=== PATIENT | male | born 1965 | race Two or more races ===

== ENCOUNTER 2018-01-26 09:19 | Observation (INO) | payer MEDICAID ==
[~2018-01-26] VITALS: Ht 175.3 cm; Wt 85.0 kg
[~2018-01-26 09:19] MED LIST: FERR-63 PO; FOLI-43 PO; FURO80TA3 PO; HYDR-4195 RC; MULT-1146 PO; NEPVIT PO; OMEP40CA34 PO; PROC; SEVE800T8 PO; SUCR500T PO
[2018-01-26] MEDS ORDERED: CLONIDINE 0.2MG TABLET PO ONE (09:30)
[2018-01-26 09:47] LABS: CHLORIDE 89 mEq/L (98-107)
[2018-01-26 09:50] LABS: INR 1.1; PARTIAL THROMBOPLASTIN TIME 25.2 sec (23.4-31.0); PROTHROMBIN TIME 11.1 sec (9.4-11.6)
[2018-01-26 10:02] LABS: BASOPHILS % 0.6 % (0.0-2.0); EOSINOPHILS % 3.2 % (0.0-5.0); HEMOGLOBIN. 10.9 g/dL (14.0-18.0); LYMPHOCYTES % 26.1 % (20.0-50.0); MEAN CORPUSCULAR HEMOGLOBIN 28.4 pg (28.0-32.0); MEAN CORPUSCULAR VOLUME 83.7 fL (80.0-94.0); MEAN PLATELET VOLUME 8.9 fl (7.4-10.4); MONOCYTES % 10.1 % (2.0-8.0); PLATELET 354 x1000/uL (130-400); RED BLOOD CELL COUNT 3.83 mill/uL (4.7-6.1); RED CELL DISTRIBUTION WIDTH 17.4 % (11.6-14.6)
[2018-01-26] MEDS ORDERED: FUROSEMIDE 40MG/4ML VIAL IVP SCH (10:20)
[2018-01-26 10:55] LABS: BG BASE EXCESS -3.4 mmol/L (-2.0-2.0); BG BILEVEL POS AIRWAY PRESSURE 15/5; BG CARBOXYHEMOGLOBIN 0.3 % (0.5-1.5); BG DEOXYHEMOGLOBIN 1.8 % (0.0-5.0); BG HCO3 ACT 21.9 mmol/L (22.0-26.0); BG METHEMOGLOBIN 0.2 % (0.0-1.5); BG OXYGEN SATURATION 98.2 % (92.0-98.5); BG OXYHEMOGLOBIN 97.7 % (94.0-97.0); BG PCO2 40.4 mmHg (35.0-45.0); BG PH 7.352 (7.350-7.450); BG SAMPLE SITE RIGHT RADIAL; BG TOTAL HEMOGLOBIN 10.3 g/dL (12.0-18.0); BG VENT MODE MASK - BIPAP; BG VENT RATE 16 set
[2018-01-26] MEDS ORDERED: LORAZEPAM 0.5MG TABLET PO PRN (11:15)
[2018-01-26] MEDS ORDERED: NA PHOS,M-B/NA PHOS,DI-BA ENEMA 118ML PR PRN (11:15)
[2018-01-26] MEDS ORDERED: HYDROCODONE/ACETAMINOPHEN 5/325MG TABLET PO PRN (11:15)
[2018-01-26] MEDS ORDERED: ACETAMINOPHEN 650MG/20.3ML UDC GT PRN (11:15)
[2018-01-26] MEDS ORDERED: ONDANSETRON HCL 4MG/2ML VIAL IV PRN (11:15)
[2018-01-26] MEDS ORDERED: MAGNESIUM/ALUMINUM HYDROXIDE/SIMETHICONE 30ML UDC PO PRN (11:15)
[2018-01-26] MEDS ORDERED: ENOXAPARIN 40MG/0.4ML SYR SUBCUT SCH (11:15)
[2018-01-26] MEDS ORDERED: DOCUSATE SODIUM 100MG CAPSULE PO PRN (11:15)
[2018-01-26] MEDS ORDERED: HYDROCODONE/ACETAMINOPHEN 10/325MG TABLET PO PRN (11:15)
[2018-01-26] MEDS ORDERED: ACETAMINOPHEN 650MG SUPP PR PRN (11:15)
[2018-01-26] MEDS ORDERED: ACETAMINOPHEN 325MG TABLET PO PRN (11:15)
[2018-01-26] MEDS ORDERED: GUAIFENESIN 200MG/10ML SUGAR FREE UDC PO PRN (11:15)
[2018-01-26 11:23] VITALS: BP 124/78
[2018-01-26] MEDS ORDERED: ENOXAPARIN 30MG/0.3ML SYR SUBCUT SCH (13:00)
== END 2018-01-26 12:35 | disposition left against medical advice (07) ==
LOC: EDBEDREQTM 09:40 → EDBEDREQ 09:40 → EDBEDREQSVC 09:40 → ER 10:13 → 3WST 10:14 → INTOOBSV 10:14 → ENRESERV 10:45 → 3WST 11:35
PROVIDERS: ADMIT Internal Medicine; ATTEND Internal Medicine
DX: E11.22 Type 2 diabetes mellitus with diabetic chronic kidney disease (principal); I13.2 Hypertensive heart and chronic kidney disease with heart failure and with stage 5 chronic kidney disease, or end stage renal disease; I50.9 Heart failure, unspecified; N18.6 End stage renal disease; E78.5 Hyperlipidemia, unspecified; E87.1 Hypo-osmolality and hyponatremia; J81.1 Chronic pulmonary edema; Z99.2 Dependence on renal dialysis
CPT/HCPCS: 36415; 36600; 71045; 80053; 82375; 82805; 83690; 83880; 84484; 85025; 85610; 85730; 93005; 94660; 96374; 99291; G0378; J1940; 99285

== ENCOUNTER 2018-03-18 06:17 | Observation (INO) | payer MEDICAID ==
[~2018-03-18] VITALS: Ht 177.8 cm; Wt 95.7 kg
[2018-03-18] MEDS: NITROGLYCERIN 0.4MG TABLET SL SL PRN ×2 (06:25→06:34)
[2018-03-18 07:13] LABS: BASOPHILS % 0.8 % (0.0-2.0); EOSINOPHILS % 6.7 % (0.0-5.0); HEMATOCRIT. 35.2 % (42.0-52.0); HEMOGLOBIN. 11.8 g/dL (14.0-18.0); LYMPHOCYTES % 37.5 % (20.0-50.0); MEAN CORPUSCULAR HEMOGLOBIN 28.3 pg (28.0-32.0); MEAN CORPUSCULAR VOLUME 84.7 fL (80.0-94.0); MEAN PLATELET VOLUME 8.4 fl (7.4-10.4); MONOCYTES % 13.4 % (2.0-8.0); NEUTROPHILS % 41.6 % (40.0-76.0); PLATELET 314 x1000/uL (130-400); RED BLOOD CELL COUNT 4.16 mill/uL (4.7-6.1); RED CELL DISTRIBUTION WIDTH 18.5 % (11.6-14.6)
[2018-03-18 07:15] LABS: CHLORIDE 91 mEq/L (98-107)
[2018-03-18 07:16] LABS: INR 1.1
[2018-03-18] MEDS ORDERED: LEVOFLOXACIN 750MG PREMIX 150 ML IV ONE (08:45)
[2018-03-18 10:00] VITALS: BP 126/84
[2018-03-18 12:00] VITALS: BP 133/87
[2018-03-18 14:08] VITALS: BP 125/81
[2018-03-18] MEDS ORDERED: DIPHENHYDRAMINE 50MG/ML VIAL IV PRN (14:15)
[2018-03-18] MEDS ORDERED: ONDANSETRON HCL 4MG/2ML VIAL IV PRN (14:15)
[2018-03-18] MEDS ORDERED: HYDROCODONE/ACETAMINOPHEN 5/325MG TABLET PO PRN (14:15)
[2018-03-18] MEDS ORDERED: ACETAMINOPHEN 650MG/20.3ML UDC GT PRN (14:15)
[2018-03-18] MEDS ORDERED: NA PHOS,M-B/NA PHOS,DI-BA ENEMA 118ML PR PRN (14:15)
[2018-03-18] MEDS ORDERED: ACETAMINOPHEN 325MG TABLET PO PRN (14:15)
[2018-03-18] MEDS ORDERED: LORAZEPAM 0.5MG TABLET PO PRN (14:15)
[2018-03-18] MEDS ORDERED: GUAIFENESIN 200MG/10ML SUGAR FREE UDC PO PRN (14:15)
[2018-03-18] MEDS ORDERED: IPRATROPIUM/ALBUTEROL 0.5-3(2.5)MG/3ML NEB INH PRN (14:15)
[2018-03-18] MEDS ORDERED: HYDROCODONE/ACETAMINOPHEN 10/325MG TABLET PO PRN (14:15)
[2018-03-18] MEDS ORDERED: MAGNESIUM/ALUMINUM HYDROXIDE/SIMETHICONE 30ML UDC PO PRN (14:15)
[2018-03-18] MEDS ORDERED: DOCUSATE SODIUM 100MG CAPSULE PO PRN (14:15)
[2018-03-18] MEDS ORDERED: ACETAMINOPHEN 650MG SUPP PR PRN (14:15)
== END 2018-03-18 14:05 | disposition left against medical advice (07) ==
LOC: ER 06:17 → EDBEDREQSVC 07:07 → EDBEDREQ 07:07 → INTOOBSV 07:51 → 5EST 07:51 → EDBEDREQ 07:55 → EDBEDREQSVC 07:55 → ENRESERV 08:09
PROVIDERS: ADMIT Internal Medicine; ATTEND Internal Medicine
DX: J96.01 Acute respiratory failure with hypoxia (principal); D64.9 Anemia, unspecified; E11.22 Type 2 diabetes mellitus with diabetic chronic kidney disease; I13.2 Hypertensive heart and chronic kidney disease with heart failure and with stage 5 chronic kidney disease, or end stage renal disease; I50.9 Heart failure, unspecified; N18.6 End stage renal disease; E87.1 Hypo-osmolality and hyponatremia; Z99.2 Dependence on renal dialysis; Z91.19 Patient's noncompliance with other medical treatment and regimen
CPT/HCPCS: 36415; 71045; 80053; 83880; 84484; 85025; 85610; 87040; 93005; 94660; 96365; 99291; G0378; J1956

== ENCOUNTER 2018-05-22 05:03 | Emergency (ER) | payer MEDICAID ==
[~2018-05-22] VITALS: Ht 175.3 cm; Wt 81.0 kg
[2018-05-22] MEDS ORDERED: ASPIRIN 81MG TABLET PO ONE (05:15)
[2018-05-22] MEDS ORDERED: NITROGLYCERIN OINT 1GM/INCH UDPKT TD ONE (05:15)
[2018-05-22 05:29] LABS: BASOPHILS % 0.9 % (0.0-2.0); EOSINOPHILS % 4.9 % (0.0-5.0); LYMPHOCYTES % 42.4 % (20.0-50.0); MEAN CORPUSCULAR HEMOGLOBIN 28.8 pg (28.0-32.0); MEAN CORPUSCULAR VOLUME 84.4 fL (80.0-94.0); MEAN PLATELET VOLUME 8.8 fl (7.4-10.4); MONOCYTES % 7.8 % (2.0-8.0); PLATELET 310 x1000/uL (130-400); RED BLOOD CELL COUNT 4.15 mill/uL (4.7-6.1); RED CELL DISTRIBUTION WIDTH 18.3 % (11.6-14.6)
[2018-05-22 05:37] LABS: CHLORIDE 93 mEq/L (98-107)
[2018-05-22 05:38] LABS: BG BASE EXCESS -5.9 mmol/L (-2.0-2.0); BG BILEVEL POS AIRWAY PRESSURE 15/5; BG CARBOXYHEMOGLOBIN 1.1 % (0.5-1.5); BG DEOXYHEMOGLOBIN 1.2 % (0.0-5.0); BG FRACTION INSPIRED OXYGEN 60; BG HCO3 ACT 20.2 mmol/L (22.0-26.0); BG METHEMOGLOBIN 0.3 % (0.0-1.5); BG OXYGEN SATURATION 98.8 % (92.0-98.5); BG OXYHEMOGLOBIN 97.4 % (94.0-97.0); BG PCO2 41.9 mmHg (35.0-45.0); BG PH 7.301 (7.350-7.450); BG PO2 152.6 mmHg (75.0-100.0); BG SAMPLE SITE RIGHT RADIAL; BG TOTAL HEMOGLOBIN 12.4 g/dL (12.0-18.0); BG VENT MODE MASK - BIPAP; BG VENT RATE 20 set
[2018-05-22 05:40] LABS: PARTIAL THROMBOPLASTIN TIME 26.2 sec (23.4-31.0); PROTHROMBIN TIME 10.7 sec (9.4-11.6)
[2018-05-22 05:42] LABS: ETHANOL BLOOD < 10 mg/dL
[2018-05-22 08:08] VITALS: BP 152/77
== END 2018-05-22 08:29 | disposition left against medical advice (07) ==
LOC: EDBEDREQTM 06:37 → EDBEDREQSVC 06:37 → EDBEDREQ 06:37 → ER 07:33 → CANBEDREQ 08:33
DX: J96.90 Respiratory failure, unspecified, unspecified whether with hypoxia or hypercapnia (principal); I13.2 Hypertensive heart and chronic kidney disease with heart failure and with stage 5 chronic kidney disease, or end stage renal disease; E11.22 Type 2 diabetes mellitus with diabetic chronic kidney disease; N18.6 End stage renal disease; I50.9 Heart failure, unspecified; E87.70 Fluid overload, unspecified; Z99.2 Dependence on renal dialysis
CPT/HCPCS: 36415; 36600; 71045; 80053; 82375; 82805; 83880; 84484; 85025; 85610; 85730; 93005; 99291; G0482

== ENCOUNTER 2018-08-28 03:58 | Emergency (ER) | payer MEDICAID ==
[2018-08-28] MEDS ORDERED: NITROGLYCERIN OINT 1GM/INCH UDPKT TD ONE (04:15)
[2018-08-28 04:51] LABS: CHLORIDE 98 mEq/L (98-107)
[2018-08-28 05:14] LABS: BASOPHILS % 0.9 % (0.0-2.0); EOSINOPHILS % 3.8 % (0.0-5.0); HEMATOCRIT. 32.1 % (42.0-52.0); HEMOGLOBIN. 10.9 g/dL (14.0-18.0); MEAN CORPUSCULAR HEMOGLOBIN 28.9 pg (28.0-32.0); MEAN CORPUSCULAR VOLUME 85.1 fL (80.0-94.0); MEAN PLATELET VOLUME 8.2 fl (7.4-10.4); MONOCYTES % 7.9 % (2.0-8.0); NEUTROPHILS % 67.4 % (40.0-76.0); PLATELET 290 x1000/uL (130-400); RED BLOOD CELL COUNT 3.77 mill/uL (4.7-6.1); RED CELL DISTRIBUTION WIDTH 18.7 % (11.6-14.6)
[2018-08-28 07:30] VITALS: BP 162/103
[2018-08-28] MEDS ORDERED: DOCUSATE SODIUM 100MG CAPSULE PO PRN (10:00)
[2018-08-28] MEDS ORDERED: GUAIFENESIN 200MG/10ML SUGAR FREE UDC PO PRN (10:00)
[2018-08-28] MEDS ORDERED: ONDANSETRON HCL 4MG/2ML INJ IV PRN (10:00)
[2018-08-28] MEDS ORDERED: HYDROCODONE/ACETAMINOPHEN 5/325MG TABLET PO PRN (10:00)
[2018-08-28] MEDS ORDERED: MAGNESIUM/ALUMINUM HYDROXIDE/SIMETHICONE 30ML UDC PO PRN (10:00)
[2018-08-28] MEDS ORDERED: CLONIDINE 0.1MG TABLET PO PRN (10:00)
[2018-08-28] MEDS ORDERED: IPRATROPIUM/ALBUTEROL 0.5-3(2.5)MG/3ML NEB INH PRN (10:00)
[2018-08-29] MEDS ORDERED: ASPIRIN 81MG EC TABLET PO SCH (09:00)
[2018-08-29] MEDS ORDERED: PANTOPRAZOLE SODIUM 40 MG/VIAL IV SCH (09:00)
== END 2018-08-28 08:33 | disposition left against medical advice (07) ==
LOC: ER 03:58 → EDBEDREQTM 05:53 → EDBEDREQ 05:53 → ENRESERV 07:13 → CANRESERV 07:13 → ER 08:33 → CANBEDREQ 08:36
DX: E87.70 Fluid overload, unspecified (principal); N17.9 Acute kidney failure, unspecified; R06.03 Acute respiratory distress; I50.9 Heart failure, unspecified; K21.9 Gastro-esophageal reflux disease without esophagitis; I12.0 Hypertensive chronic kidney disease with stage 5 chronic kidney disease or end stage renal disease; E11.22 Type 2 diabetes mellitus with diabetic chronic kidney disease; N18.6 End stage renal disease; Z99.2 Dependence on renal dialysis
CPT/HCPCS: 36415; 71045; 82962; 83880; 84484; 93005; 99285

== ENCOUNTER 2018-09-28 04:39 | Inpatient (IN) | payer MEDICAID ==
[~2018-09-28] VITALS: Ht 175.3 cm; Wt 78.6 kg
[2018-09-28] MEDS ORDERED: ONDANSETRON HCL 4MG/2ML INJ IV STA (04:51)
[2018-09-28] MEDS ORDERED: NITROGLYCERIN OINT 1GM/INCH UDPKT TD ONE (05:00)
[2018-09-28] MEDS ORDERED: LABETALOL 5MG/ML SYR 20 MG/4 ML SYRINGE IV ONE (05:15)
[2018-09-28 05:30] LABS: BASOPHILS % 0.6 % (0.0-2.0); EOSINOPHILS % 3.5 % (0.0-5.0); HEMATOCRIT. 29.4 % (42.0-52.0); HEMOGLOBIN. 9.8 g/dL (14.0-18.0); LYMPHOCYTES % 21.6 % (20.0-50.0); MEAN CORPUSCULAR HEMOGLOBIN 27.9 pg (28.0-32.0); MEAN CORPUSCULAR VOLUME 83.4 fL (80.0-94.0); MONOCYTES % 9.1 % (2.0-8.0); NEUTROPHILS % 65.2 % (40.0-76.0); PLATELET 401 x1000/uL (130-400); RED BLOOD CELL COUNT 3.53 mill/uL (4.7-6.1); RED CELL DISTRIBUTION WIDTH 17.5 % (11.6-14.6)
[2018-09-28 05:42] LABS: CHLORIDE 97 mEq/L (98-107)
[2018-09-28] MEDS ORDERED: CLONIDINE 0.1MG TABLET PO PRN (09:30)
[2018-09-28] MEDS ORDERED: ONDANSETRON HCL 4MG/2ML INJ IV PRN (09:30)
[2018-09-28] MEDS ORDERED: DEXTROSE 50% WATER 50ML SYRINGE IV PRN (09:30)
[2018-09-28] MEDS ORDERED: ACETAMINOPHEN 325MG TABLET PO PRN (09:30)
[2018-09-28 10:30] VITALS: BP 142/77
[2018-09-28 11:30] VITALS: BP 142/77
[2018-09-28] MEDS ORDERED: LOSARTAN POTASSIUM 25 MG TABLET PO SCH (12:00)
[2018-09-28] MEDS ORDERED: BLOOD SUGAR DIAGNOSTIC STRIP TEST SCH (12:10)
[2018-09-28] MEDS ORDERED: INSULIN LISPRO 100 UNITS/ML SUBCUT SCH (12:40)
[2018-09-28] MEDS ORDERED: POTASSIUM CHLORIDE INJ 40 MEQ in DEXT 5% WATER 250 ML IV NR (13:00)
[2018-09-28] MEDS ORDERED: GUAIFENESIN 600MG ER TABLET PO PRN (13:15)
[2018-09-28] MEDS ORDERED: AMLODIPINE 5MG TABLET PO SCH (21:00)
[2018-09-28] MEDS ORDERED: POTASSIUM CHLORIDE 20MEQ TABLET SR PO SCH (21:00)
== END 2018-09-28 14:00 | disposition left against medical advice (07) | DRG 133 ==
LOC: ER 04:39 → EDBEDREQ 06:01 → EDBEDREQTM 06:01 → CANRESERV 07:10 → ENRESERV 07:10 → CANRESERV 08:04 → ENRESERV 08:18 → 8WST 09:27 → EDBEDREQ 09:28 → EDBEDREQTM 09:28
PROVIDERS: ADMIT Internal Medicine; ATTEND Internal Medicine
DX: J96.01 Acute respiratory failure with hypoxia (principal); E43 Unspecified severe protein-calorie malnutrition; I13.2 Hypertensive heart and chronic kidney disease with heart failure and with stage 5 chronic kidney disease, or end stage renal disease; J84.9 Interstitial pulmonary disease, unspecified; E11.22 Type 2 diabetes mellitus with diabetic chronic kidney disease; E87.8 Other disorders of electrolyte and fluid balance, not elsewhere classified; I16.0 Hypertensive urgency; D63.8 Anemia in other chronic diseases classified elsewhere; E11.65 Type 2 diabetes mellitus with hyperglycemia; E87.1 Hypo-osmolality and hyponatremia; I50.22 Chronic systolic (congestive) heart failure; E87.6 Hypokalemia; K29.70 Gastritis, unspecified, without bleeding; Z53.21 Procedure and treatment not carried out due to patient leaving prior to being seen by health care provider; N18.6 End stage renal disease; Z82.49 Family history of ischemic heart disease and other diseases of the circulatory system; Z83.3 Family history of diabetes mellitus; Z91.19 Patient's noncompliance with other medical treatment and regimen; Z99.2 Dependence on renal dialysis; Z79.899 Other long term (current) drug therapy
CPT/HCPCS: 36415; 71045; 82962; 84484; 93005; 96374; 99285; J2405; J3480; J3490; J7060

== ENCOUNTER 2018-12-14 21:19 | Inpatient (IN) | payer MEDICAID ==
[~2018-12-14] VITALS: Ht 172.7 cm; Wt 80.3 kg
[~2018-12-14 21:19] MED LIST changes: -FERR-63 PO; -FOLI-43 PO; -FURO80TA3 PO; -HYDR-4195 RC; -MULT-1146 PO; -NEPVIT PO; -PROC; -SEVE800T8 PO
[2018-12-14] MEDS ORDERED: NITROGLYCERIN 0.4MG TABLET SL SL ONE (21:30)
[2018-12-14 22:06] LABS: BASOPHILS % 0.6 % (0.0-2.0); EOSINOPHILS % 2.8 % (0.0-5.0); HEMATOCRIT. 27.9 % (42.0-52.0); HEMOGLOBIN. 8.9 g/dL (14.0-18.0); LYMPHOCYTES % 13.3 % (20.0-50.0); MEAN CORPUSCULAR HEMOGLOBIN 26.8 pg (28.0-32.0); MEAN CORPUSCULAR VOLUME 83.7 fL (80.0-94.0); MEAN PLATELET VOLUME 7.5 fl (7.4-10.4); MONOCYTES % 9.5 % (2.0-8.0); NEUTROPHILS % 73.8 % (40.0-76.0); PLATELET 347 x1000/uL (130-400); RED BLOOD CELL COUNT 3.33 mill/uL (4.7-6.1); RED CELL DISTRIBUTION WIDTH 20.2 % (11.6-14.6)
[2018-12-14 22:08] LABS: CHLORIDE 102 mEq/L (98-107)
[2018-12-15] MEDS ORDERED: CLONIDINE 0.1MG TABLET PO PRN
[2018-12-15] MEDS ORDERED: ONDANSETRON HCL 4MG/2ML INJ IV PRN
[2018-12-15] MEDS ORDERED: ACETAMINOPHEN 325MG TABLET PO PRN
[2018-12-15] MEDS ORDERED: DOCUSATE SODIUM 100MG CAPSULE PO PRN
[2018-12-15] MEDS ORDERED: IPRATROPIUM/ALBUTEROL 0.5-3(2.5)MG/3ML NEB INH PRN
[2018-12-15] MEDS ORDERED: HYDROCODONE/ACETAMINOPHEN 5/325MG TABLET PO PRN
[2018-12-15 06:45] LABS: BASOPHILS % 0.5 % (0.0-2.0); EOSINOPHILS % 3.7 % (0.0-5.0); HEMOGLOBIN. 8.7 g/dL (14.0-18.0); MEAN CORPUSCULAR HEMOGLOBIN 27.4 pg (28.0-32.0); MEAN PLATELET VOLUME 7.8 fl (7.4-10.4); MONOCYTES % 8.3 % (2.0-8.0); NEUTROPHILS % 76.5 % (40.0-76.0); PLATELET 335 x1000/uL (130-400); RED BLOOD CELL COUNT 3.16 mill/uL (4.7-6.1); RED CELL DISTRIBUTION WIDTH 20.3 % (11.6-14.6)
[2018-12-15 07:00] LABS: CREATINE KINASE MB FRACTION 7.3 ng/mL (0.5-3.6)
[2018-12-15 12:31] LABS: TOTAL IRON BINDING CAPACITY 160 ug/dL (250-450)
[2018-12-15 12:40] VITALS: BP 149/85
[2018-12-15 12:55] LABS: FOLIC ACID (FOLATE) SERUM 18.6 ng/mL (>5.38)
[2018-12-15 16:55] VITALS: BP 141/82
[2018-12-15 20:00] VITALS: BP 135/76
[2018-12-15] MEDS: ATORVASTATIN CALCIUM 20MG TABLET PO SCH ×2 (21:00→22:24)
[2018-12-15] MEDS: EPOETIN ALFA 10000UNITS/ML VIAL SUBCUT SCH ×2 (21:00→22:24)
[2018-12-15 22:04] LABS: CREATINE KINASE MB FRACTION 8.5 ng/mL (0.5-3.6)
[2018-12-16] VITALS: BP 127/70
[2018-12-16 02:00] VITALS: BP 127/70
[2018-12-16 04:00] VITALS: BP 126/68
[2018-12-16] MEDS ORDERED: OMEPRAZOLE 20MG CAPSULE EXTENDED RELEASE PO SCH (07:10)
[2018-12-16 08:00] VITALS: BP 136/77
[2018-12-16 10:11] LABS: EOSINOPHILS % 4.1 % (0.0-5.0); HEMATOCRIT. 25.5 % (42.0-52.0); HEMOGLOBIN. 8.3 g/dL (14.0-18.0); MEAN CORPUSCULAR HEMOGLOBIN 27.1 pg (28.0-32.0); MEAN CORPUSCULAR VOLUME 83.4 fL (80.0-94.0); MEAN PLATELET VOLUME 7.6 fl (7.4-10.4); MONOCYTES % 9.9 % (2.0-8.0); PLATELET 326 x1000/uL (130-400); RED BLOOD CELL COUNT 3.06 mill/uL (4.7-6.1); RED CELL DISTRIBUTION WIDTH 20.5 % (11.6-14.6)
[2018-12-16 10:55] LABS: PHOSPHORUS 5.3 mg/dL (2.5-4.9)
[2018-12-16] MEDS ORDERED: DEXTROSE 5% IV SCH (14:15)
[2018-12-16] MEDS ORDERED: CEFTAZIDIME PENTAHYDRATE IV SCH (14:15)
[2018-12-16] MEDS ORDERED: WATER IV SCH (14:15)
[2018-12-16] MEDS ORDERED: VANCOMYCIN 1500MG in DEXTROSE 5% WATER 250ML IV SCH (16:00)
[2018-12-16] MEDS ORDERED: CEFTAZIDIME PENTAHYDRATE 1 G in DEXTROSE 5% WATER 50 ML IV SCH (17:00)
== END 2018-12-16 15:50 | disposition left against medical advice (07) | DRG 133 ==
LOC: ER 21:19 → 8WST 23:25 → EDBEDREQ 23:26 → EDBEDREQSVC 23:26 → EDBEDREQ 23:44 → EDBEDREQSVC 23:44 → EDBEDREQTM 23:44 → ENRESERV 12-15 11:49
PROVIDERS: ADMIT Internal Medicine; ATTEND Internal Medicine
PROC: 5A09357 Assistance with Respiratory Ventilation, Less than 24 Consecutive Hours, Continuous Positive Airway Pressure (ICD-10-PCS; principal; 2018-12-14)
PROC: 5A1D70Z Performance of Urinary Filtration, Intermittent, Less than 6 Hours Per Day (ICD-10-PCS; 2018-12-15)
DX: J96.00 Acute respiratory failure, unspecified whether with hypoxia or hypercapnia (principal); I13.2 Hypertensive heart and chronic kidney disease with heart failure and with stage 5 chronic kidney disease, or end stage renal disease; J18.9 Pneumonia, unspecified organism; E11.21 Type 2 diabetes mellitus with diabetic nephropathy; E11.22 Type 2 diabetes mellitus with diabetic chronic kidney disease; D72.0 Genetic anomalies of leukocytes; I50.22 Chronic systolic (congestive) heart failure; N18.6 End stage renal disease; E44.1 Mild protein-calorie malnutrition; I16.0 Hypertensive urgency; I45.81 Long QT syndrome; D63.1 Anemia in chronic kidney disease; K29.70 Gastritis, unspecified, without bleeding; Z53.21 Procedure and treatment not carried out due to patient leaving prior to being seen by health care provider; I45.10 Unspecified right bundle-branch block; E78.5 Hyperlipidemia, unspecified; Z99.2 Dependence on renal dialysis; Z79.4 Long term (current) use of insulin; Z82.49 Family history of ischemic heart disease and other diseases of the circulatory system; Z91.19 Patient's noncompliance with other medical treatment and regimen; Z79.899 Other long term (current) drug therapy
CPT/HCPCS: 36415; 71045; 74018; 80048; 80061; 82550; 82553; 82607; 82728; 82746; 83540; 83550; 83735; 83880; 84100; 84443; 84484; 93005; 93306; 93970; 94660; 99285; J0713; J0885; J3370; J7060

== ENCOUNTER 2018-12-17 19:13 | Inpatient (IN) | payer MEDICAID ==
[~2018-12-17] VITALS: Ht 175.3 cm; Wt 72.7 kg
[2018-12-17] MEDS ORDERED: ALBUTEROL (0.083%) 2.5MG/3ML NEB HHN STA (19:37)
[2018-12-17] MEDS ORDERED: IPRATROPIUM BROMIDE (0.02%) 0.5MG/2.5ML NEB HHN STA (19:37)
[2018-12-17] MEDS ORDERED: METHYLPREDNISOLONE SOD SUCC 125 MG/2 ML VIAL IV STA (19:37)
[2018-12-17 20:28] LABS: HEMATOCRIT. 26.1 % (42.0-52.0); HEMOGLOBIN. 8.6 g/dL (14.0-18.0); LYMPHOCYTES % 14.8 % (20.0-50.0); MEAN CORPUSCULAR HEMOGLOBIN 27.3 pg (28.0-32.0); MEAN CORPUSCULAR VOLUME 82.5 fL (80.0-94.0); MEAN PLATELET VOLUME 7.5 fl (7.4-10.4); MONOCYTES % 6.9 % (2.0-8.0); NEUTROPHILS % 74.3 % (40.0-76.0); PLATELET 329 x1000/uL (130-400); RED BLOOD CELL COUNT 3.17 mill/uL (4.7-6.1); RED CELL DISTRIBUTION WIDTH 19.8 % (11.6-14.6)
[2018-12-17 20:31] LABS: CHLORIDE 106 mEq/L (98-107)
[2018-12-18] VITALS (25 sets, daily range): BP systolic 115–213; BP diastolic 48–126
[2018-12-18] MEDS ORDERED: DIPHENHYDRAMINE 50MG CAPSULE PO PRN (02:15)
[2018-12-18] MEDS: OMEPRAZOLE 20MG CAPSULE EXTENDED RELEASE PO SCH (07:10)
[2018-12-18] MEDS: SEVELAMER CARBONATE 800 MG TABLET PO SCH ×3 (07:40→12:25)
[2018-12-18] MEDS: FOLIC ACID/VITAMIN B COMP W-C TABLET PO SCH (09:10)
[2018-12-18] MEDS: ALBUTEROL (0.083%) 2.5MG/3ML NEB HHN PRN (12:11)
[2018-12-18 17:20] LABS: BG BASE EXCESS -9.6 mmol/L (-2.0-2.0); BG BILEVEL POS AIRWAY PRESSURE 15/5; BG CARBOXYHEMOGLOBIN 0.3 % (0.5-1.5); BG DEOXYHEMOGLOBIN 0.4 % (0.0-5.0); BG HCO3 ACT 16.2 mmol/L (22.0-26.0); BG METHEMOGLOBIN 0.5 % (0.0-1.5); BG OXYGEN SATURATION 99.6 % (92.0-98.5); BG OXYHEMOGLOBIN 98.8 % (94.0-97.0); BG PCO2 34.8 mmHg (35.0-45.0); BG PH 7.286 (7.350-7.450); BG PO2 495.5 mmHg (75.0-100.0); BG SAMPLE SITE RIGHT RADIAL; BG VENT MODE MASK - BIPAP; BG VENT RATE 14 set
[2018-12-18 17:44] LABS: PHOSPHORUS 6.1 mg/dL (2.5-4.9)
[2018-12-18] MEDS ORDERED: DEXTROSE 50% WATER 50ML SYRINGE IV PRN (18:15)
[2018-12-18] MEDS: BLOOD SUGAR DIAGNOSTIC STRIP TEST SCH (20:49)
[2018-12-18] MEDS: INSULIN LISPRO 100 UNITS/ML SUBCUT SCH (20:50)
[2018-12-19] VITALS: BP 138/81
[2018-12-19 00:15] VITALS: BP 160/73
[2018-12-19 00:30] VITALS: BP 153/78
[2018-12-19 00:45] VITALS: BP 158/88
[2018-12-19 01:00] VITALS: BP 140/74
[2018-12-19 02:00] VITALS: BP 152/82
[2018-12-19] MEDS: INSULIN LISPRO 100 UNITS/ML SUBCUT SCH ×3 (06:17→21:58)
[2018-12-19] MEDS: BLOOD SUGAR DIAGNOSTIC STRIP TEST SCH ×4 (06:17→21:58)
[2018-12-19] MEDS: OMEPRAZOLE 20MG CAPSULE EXTENDED RELEASE PO SCH (06:17)
[2018-12-19] MEDS: SEVELAMER CARBONATE 800 MG TABLET PO SCH ×2 (07:00→12:00)
[2018-12-19] MEDS: FOLIC ACID/VITAMIN B COMP W-C TABLET PO SCH (08:39)
[2018-12-19] MEDS: LACTULOSE 20G/30ML UDC PO PRN (11:13)
[2018-12-19] MEDS ORDERED: HEPARIN SODIUM 1,000 UNIT/1ML VIAL IV SCH (14:45)
[2018-12-19] MEDS ORDERED: PERIT DIALYSIS IV NR (19:00)
[2018-12-19] MEDS ORDERED: VANCOMYCIN IV NR (19:00)
[2018-12-19] MEDS ORDERED: DEXT IV NR (19:00)
[2018-12-20 05:45] LABS: BASOPHILS % 0.9 % (0.0-2.0); EOSINOPHILS % 3.4 % (0.0-5.0); HEMOGLOBIN. 7.4 g/dL (14.0-18.0); LYMPHOCYTES % 16.1 % (20.0-50.0); MEAN CORPUSCULAR HEMOGLOBIN 27.3 pg (28.0-32.0); MEAN PLATELET VOLUME 8.1 fl (7.4-10.4); MONOCYTES % 12.7 % (2.0-8.0); NEUTROPHILS % 66.9 % (40.0-76.0); PLATELET 249 x1000/uL (130-400); RED BLOOD CELL COUNT 2.72 mill/uL (4.7-6.1); RED CELL DISTRIBUTION WIDTH 19.4 % (11.6-14.6)
[2018-12-20 06:00] VITALS: BP 142/67
[2018-12-20] MEDS: BLOOD SUGAR DIAGNOSTIC STRIP TEST SCH ×4 (06:14→21:00)
[2018-12-20] MEDS: OMEPRAZOLE 20MG CAPSULE EXTENDED RELEASE PO SCH ×2 (06:20→06:25)
[2018-12-20] MEDS: SEVELAMER CARBONATE 800 MG TABLET PO SCH ×4 (06:20→17:22)
[2018-12-20] MEDS: INSULIN LISPRO 100 UNITS/ML SUBCUT SCH ×5 (06:21→21:00)
[2018-12-20] MEDS: LACTULOSE 20G/30ML UDC PO PRN ×2 (06:31→17:20)
[2018-12-20] MEDS: FOLIC ACID/VITAMIN B COMP W-C TABLET PO SCH (08:22)
[2018-12-20 10:40] VITALS: BP 119/71
[2018-12-20 11:58] LABS: HEPATITIS B SURFACE ANTIGEN NEGATIVE
[2018-12-20 12:00] VITALS: BP 127/67
[2018-12-20 12:27] LABS: HEPATITIS A AB IGM NEGATIVE (NEGATIVE)
[2018-12-20 16:00] VITALS: BP 116/61
[2018-12-20] MEDS ORDERED: LACTULOSE 20G/30ML UDC PO PRN (17:14)
[2018-12-20] MEDS: VANCOMYCIN IV SCH (17:23)
[2018-12-20] MEDS: CEFTAZIDIME PENTAHYDRATE IV SCH (17:23)
[2018-12-20] MEDS: [UNRECOGNIZED DRUG - OTHER] IV SCH (17:23)
[2018-12-20] MEDS: EPOETIN ALFA 10000UNITS/ML VIAL SUBCUT SCH (21:00)
[2018-12-21] VITALS (9 sets, daily range): BP systolic 97–156; BP diastolic 53–87
[2018-12-21] MEDS: BLOOD SUGAR DIAGNOSTIC STRIP TEST SCH ×4 (06:56→21:37)
[2018-12-21 07:29] LABS: BASOPHILS % 0.8 % (0.0-2.0); EOSINOPHILS % 3.1 % (0.0-5.0); LYMPHOCYTES % 13.1 % (20.0-50.0); MEAN CORPUSCULAR VOLUME 81.5 fL (80.0-94.0); MEAN PLATELET VOLUME 8.2 fl (7.4-10.4); MONOCYTES % 11.4 % (2.0-8.0); NEUTROPHILS % 71.6 % (40.0-76.0); PLATELET 233 x1000/uL (130-400); RED BLOOD CELL COUNT 2.54 mill/uL (4.7-6.1); RED CELL DISTRIBUTION WIDTH 19.2 % (11.6-14.6)
[2018-12-21] MEDS: SEVELAMER CARBONATE 800 MG TABLET PO SCH ×3 (08:10→17:28)
[2018-12-21 08:24] LABS: HEMOGLOBIN. 6.8 g/dL (14.0-18.0)
[2018-12-21 08:25] LABS: HEMATOCRIT. 20.7 % (42.0-52.0)
[2018-12-21] MEDS: FOLIC ACID/VITAMIN B COMP W-C TABLET PO SCH (08:39)
[2018-12-21] MEDS: FAMOTIDINE 20MG/2ML VIAL IV SCH (08:39)
[2018-12-21] MEDS: INSULIN LISPRO 100 UNITS/ML SUBCUT SCH ×4 (08:40→21:00)
[2018-12-21] MEDS: VANCOMYCIN IV SCH (16:59)
[2018-12-21] MEDS: [UNRECOGNIZED DRUG - OTHER] IV SCH (16:59)
[2018-12-21] MEDS: CEFTAZIDIME PENTAHYDRATE IV SCH (16:59)
[2018-12-21] MEDS: DOCUSATE SODIUM 250MG CAPSULE PO PRN (18:19)
[2018-12-21] MEDS: LACTULOSE 20G/30ML UDC PO PRN (18:19)
[2018-12-22] VITALS: BP 135/72
[2018-12-22 04:00] VITALS: BP 124/68
[2018-12-22] MEDS: BLOOD SUGAR DIAGNOSTIC STRIP TEST SCH ×4 (06:57→21:41)
[2018-12-22] MEDS: INSULIN LISPRO 100 UNITS/ML SUBCUT SCH ×4 (06:57→21:00)
[2018-12-22 07:18] LABS: BASOPHILS % 0.7 % (0.0-2.0); EOSINOPHILS % 3.3 % (0.0-5.0); HEMOGLOBIN. 8.3 g/dL (14.0-18.0); LYMPHOCYTES % 13.1 % (20.0-50.0); MEAN CORPUSCULAR HEMOGLOBIN 28.3 pg (28.0-32.0); MEAN CORPUSCULAR VOLUME 82.2 fL (80.0-94.0); MEAN PLATELET VOLUME 8.3 fl (7.4-10.4); MONOCYTES % 10.2 % (2.0-8.0); NEUTROPHILS % 72.7 % (40.0-76.0); PLATELET 237 x1000/uL (130-400); RED BLOOD CELL COUNT 2.92 mill/uL (4.7-6.1); RED CELL DISTRIBUTION WIDTH 19.2 % (11.6-14.6)
[2018-12-22] MEDS: FAMOTIDINE 20MG/2ML VIAL IV SCH (09:25)
[2018-12-22] MEDS: SEVELAMER CARBONATE 800 MG TABLET PO SCH ×3 (09:25→18:32)
[2018-12-22] MEDS: FOLIC ACID/VITAMIN B COMP W-C TABLET PO SCH (09:25)
[2018-12-22 12:00] VITALS: BP 132/67
[2018-12-22 16:00] VITALS: BP 136/70
[2018-12-22] MEDS: LACTULOSE 20G/30ML UDC PO PRN (18:48)
[2018-12-22 20:00] VITALS: BP 137/80
[2018-12-22] MEDS: ALBUTEROL (0.083%) 2.5MG/3ML NEB HHN PRN (20:50)
[2018-12-23] VITALS (8 sets, daily range): BP systolic 100–186; BP diastolic 41–94
[2018-12-23] MEDS: EPOETIN ALFA 10000UNITS/ML VIAL SUBCUT SCH (00:32)
[2018-12-23] MEDS: ALBUTEROL (0.083%) 2.5MG/3ML NEB HHN PRN (04:15)
[2018-12-23] MEDS: SEVELAMER CARBONATE 800 MG TABLET PO SCH ×3 (08:10→18:30)
[2018-12-23] MEDS: INSULIN LISPRO 100 UNITS/ML SUBCUT SCH ×4 (08:10→21:00)
[2018-12-23] MEDS: BLOOD SUGAR DIAGNOSTIC STRIP TEST SCH ×4 (08:24→21:00)
[2018-12-23] MEDS ORDERED: MIDAZOLAM HCL 5 MG/5 ML VIAL IV PRN (08:45)
[2018-12-23] MEDS ORDERED: FENTANYL CITRATE/PF 50MCG/ML 2ML VIAL IV PRN (08:46)
[2018-12-23] MEDS ORDERED: FENTANYL CITRATE/PF 50MCG/ML 2ML VIAL ONE (08:48)
[2018-12-23] MEDS ORDERED: SIMETHICONE 40 MG/0.6 ML 30ML ONE (08:48)
[2018-12-23] MEDS ORDERED: MIDAZOLAM HCL 5 MG/5 ML VIAL ONE (08:48)
[2018-12-23] MEDS ORDERED: DIPHENHYDRAMINE 50MG/ML VIAL ONE (08:49)
[2018-12-23] MEDS: FOLIC ACID/VITAMIN B COMP W-C TABLET PO SCH (09:00)
[2018-12-23] MEDS: FAMOTIDINE 20MG/2ML VIAL IV SCH (09:00)
[2018-12-23] MEDS: PANTOPRAZOLE SODIUM 40 MG/VIAL IV SCH (11:18)
[2018-12-23] MEDS: SUCRALFATE 1 G/10 ML UDC PO SCH ×3 (12:40→21:32)
[2018-12-23 12:43] LABS: BASOPHILS % 0.7 % (0.0-2.0); EOSINOPHILS % 2.5 % (0.0-5.0); HEMATOCRIT. 25.5 % (42.0-52.0); HEMOGLOBIN. 8.7 g/dL (14.0-18.0); INR 1.1; LYMPHOCYTES % 11.3 % (20.0-50.0); MEAN CORPUSCULAR HEMOGLOBIN 28.1 pg (28.0-32.0); MEAN CORPUSCULAR VOLUME 81.9 fL (80.0-94.0); MEAN PLATELET VOLUME 8.2 fl (7.4-10.4); MONOCYTES % 8.4 % (2.0-8.0); NEUTROPHILS % 77.1 % (40.0-76.0); PARTIAL THROMBOPLASTIN TIME 29.9 sec (23.4-31.0); PLATELET 240 x1000/uL (130-400); PROTHROMBIN TIME 10.9 sec (9.1-11.1); RED BLOOD CELL COUNT 3.11 mill/uL (4.7-6.1); RED CELL DISTRIBUTION WIDTH 19.1 % (11.6-14.6)
[2018-12-23 12:59] LABS: FERRITIN 1421 ng/mL (22-322)
[2018-12-23] MEDS ORDERED: SODIUM CHLORIDE 0.9% 10ML VIAL ONE (13:36)
[2018-12-23 13:51] LABS: FOLIC ACID (FOLATE) SERUM >20 ng/mL ng/mL (>5.38)
[2018-12-23 14:03] LABS: VITAMIN B12 SERUM 764 pg/mL (211-911)
[2018-12-23] MEDS ORDERED: DIATR MEGLU/DIATRIZOATE SOLN 120ML ONE (14:05)
[2018-12-23] MEDS ORDERED: BARIUM SULFATE 176 GM SUSP.RECON ONE (14:28)
[2018-12-24] VITALS: BP 124/59
[2018-12-24 04:00] VITALS: BP 121/69
[2018-12-24] MEDS: BLOOD SUGAR DIAGNOSTIC STRIP TEST SCH ×4 (07:40→22:51)
[2018-12-24 08:00] VITALS: BP 153/60
[2018-12-24] MEDS: SUCRALFATE 1 G/10 ML UDC PO SCH ×4 (09:07→22:51)
[2018-12-24] MEDS: FOLIC ACID/VITAMIN B COMP W-C TABLET PO SCH (09:07)
[2018-12-24] MEDS: SEVELAMER CARBONATE 800 MG TABLET PO SCH ×3 (09:07→18:58)
[2018-12-24] MEDS: PANTOPRAZOLE SODIUM 40 MG/VIAL IV SCH (09:07)
[2018-12-24] MEDS: INSULIN LISPRO 100 UNITS/ML SUBCUT SCH ×4 (09:07→23:09)
[2018-12-24 12:00] VITALS: BP 119/42
[2018-12-24 13:54] LABS: BASOPHILS % 0.6 % (0.0-2.0); EOSINOPHILS % 2.5 % (0.0-5.0); HEMATOCRIT. 27.6 % (42.0-52.0); HEMOGLOBIN. 9.1 g/dL (14.0-18.0); LYMPHOCYTES % 9.7 % (20.0-50.0); MEAN CORPUSCULAR HEMOGLOBIN 27.8 pg (28.0-32.0); MEAN PLATELET VOLUME 7.9 fl (7.4-10.4); NEUTROPHILS % 78.2 % (40.0-76.0); PLATELET 278 x1000/uL (130-400); RED BLOOD CELL COUNT 3.28 mill/uL (4.7-6.1); RED CELL DISTRIBUTION WIDTH 19.3 % (11.6-14.6)
[2018-12-24] MEDS: ALBUTEROL (0.083%) 2.5MG/3ML NEB HHN PRN (17:35)
[2018-12-24 20:00] VITALS: BP 132/62
[2018-12-24] MEDS: EPOETIN ALFA 10000UNITS/ML VIAL SUBCUT SCH (22:51)
[2018-12-25] VITALS: BP 121/56
[2018-12-25] MEDS: LACTULOSE 20G/30ML UDC PO PRN ×2 (00:55→19:04)
[2018-12-25 04:00] VITALS: BP 135/79
[2018-12-25] MEDS: ALBUTEROL (0.083%) 2.5MG/3ML NEB HHN PRN (04:15)
[2018-12-25] MEDS: BLOOD SUGAR DIAGNOSTIC STRIP TEST SCH ×4 (07:03→21:00)
[2018-12-25 07:15] LABS: BASOPHILS % 0.6 % (0.0-2.0); EOSINOPHILS % 2.2 % (0.0-5.0); HEMATOCRIT. 22.7 % (42.0-52.0); HEMOGLOBIN. 7.7 g/dL (14.0-18.0); LYMPHOCYTES % 15.2 % (20.0-50.0); MEAN CORPUSCULAR HEMOGLOBIN 28.1 pg (28.0-32.0); MEAN CORPUSCULAR VOLUME 83.4 fL (80.0-94.0); MEAN PLATELET VOLUME 8.3 fl (7.4-10.4); MONOCYTES % 9.1 % (2.0-8.0); NEUTROPHILS % 72.9 % (40.0-76.0); PLATELET 233 x1000/uL (130-400); RED BLOOD CELL COUNT 2.73 mill/uL (4.7-6.1); RED CELL DISTRIBUTION WIDTH 19.7 % (11.6-14.6)
[2018-12-25 08:00] VITALS: BP 141/78
[2018-12-25] MEDS: INSULIN LISPRO 100 UNITS/ML SUBCUT SCH ×4 (08:10→21:00)
[2018-12-25] MEDS: SUCRALFATE 1 G/10 ML UDC PO SCH ×4 (08:58→21:55)
[2018-12-25] MEDS: SEVELAMER CARBONATE 800 MG TABLET PO SCH ×3 (08:58→18:10)
[2018-12-25] MEDS: FOLIC ACID/VITAMIN B COMP W-C TABLET PO SCH (08:58)
[2018-12-25] MEDS: PANTOPRAZOLE SODIUM 40 MG/VIAL IV SCH (09:00)
[2018-12-25 12:00] VITALS: BP 146/81
[2018-12-25 16:00] VITALS: BP 136/85
[2018-12-25 20:00] VITALS: BP 137/81
[2018-12-26] VITALS: BP 140/81
[2018-12-26 04:00] VITALS: BP 145/76
[2018-12-26 07:24] LABS: BASOPHILS % 0.6 % (0.0-2.0); EOSINOPHILS % 3.5 % (0.0-5.0); HEMATOCRIT. 23.7 % (42.0-52.0); HEMOGLOBIN. 8.1 g/dL (14.0-18.0); LYMPHOCYTES % 12.4 % (20.0-50.0); MEAN CORPUSCULAR HEMOGLOBIN 28.3 pg (28.0-32.0); MEAN CORPUSCULAR VOLUME 82.9 fL (80.0-94.0); MONOCYTES % 8.4 % (2.0-8.0); NEUTROPHILS % 75.1 % (40.0-76.0); RED BLOOD CELL COUNT 2.86 mill/uL (4.7-6.1); RED CELL DISTRIBUTION WIDTH 19.9 % (11.6-14.6)
[2018-12-26] MEDS: BLOOD SUGAR DIAGNOSTIC STRIP TEST SCH ×4 (07:40→21:00)
[2018-12-26 08:00] VITALS: BP 146/80
[2018-12-26] MEDS: INSULIN LISPRO 100 UNITS/ML SUBCUT SCH ×4 (08:10→21:00)
[2018-12-26] MEDS: PANTOPRAZOLE 40MG DR TABLET PO SCH ×2 (09:15→22:56)
[2018-12-26] MEDS: FOLIC ACID/VITAMIN B COMP W-C TABLET PO SCH (09:15)
[2018-12-26] MEDS: SUCRALFATE 1 G/10 ML UDC PO SCH ×4 (09:15→22:56)
[2018-12-26] MEDS: SEVELAMER CARBONATE 800 MG TABLET PO SCH ×3 (09:15→18:10)
[2018-12-26 10:14] LABS: PLATELET 223 x1000/uL (130-400)
[2018-12-26 16:00] VITALS: BP 136/79
[2018-12-26 20:00] VITALS: BP 122/69
[2018-12-26] MEDS: LACTULOSE 20G/30ML UDC PO PRN (22:56)
[2018-12-27] VITALS: BP_SYST 122; BP_SYST 134; BP_DIAS 65; BP_DIAS 69
[2018-12-27 04:00] VITALS: BP 125/72
[2018-12-27 06:43] LABS: EOSINOPHILS % 4.3 % (0.0-5.0); HEMATOCRIT. 23.2 % (42.0-52.0); HEMOGLOBIN. 7.9 g/dL (14.0-18.0); LYMPHOCYTES % 15.5 % (20.0-50.0); MEAN CORPUSCULAR HEMOGLOBIN 27.8 pg (28.0-32.0); MEAN CORPUSCULAR VOLUME 81.7 fL (80.0-94.0); MEAN PLATELET VOLUME 8.3 fl (7.4-10.4); MONOCYTES % 9.2 % (2.0-8.0); PLATELET 252 x1000/uL (130-400); RED BLOOD CELL COUNT 2.84 mill/uL (4.7-6.1); RED CELL DISTRIBUTION WIDTH 19.7 % (11.6-14.6)
[2018-12-27] MEDS: BLOOD SUGAR DIAGNOSTIC STRIP TEST SCH ×4 (07:40→21:44)
[2018-12-27 08:00] VITALS: BP 133/73
[2018-12-27] MEDS: INSULIN LISPRO 100 UNITS/ML SUBCUT SCH ×4 (08:10→21:00)
[2018-12-27] MEDS: NEOMY SULF/BACITRAC ZN/POLY OINT 28GM TOP SCH (09:00)
[2018-12-27] MEDS: FOLIC ACID/VITAMIN B COMP W-C TABLET PO SCH ×2 (09:08→09:13)
[2018-12-27] MEDS: SEVELAMER CARBONATE 800 MG TABLET PO SCH ×3 (09:08→18:10)
[2018-12-27] MEDS: SUCRALFATE 1 G/10 ML UDC PO SCH ×4 (09:08→21:00)
[2018-12-27 16:00] VITALS: BP 142/75
[2018-12-27 20:00] VITALS: BP 127/67
[2018-12-28] VITALS (7 sets, daily range): BP systolic 119–154; BP diastolic 55–93
[2018-12-28] MEDS: EPOETIN ALFA 10000UNITS/ML VIAL SUBCUT SCH (05:23)
[2018-12-28] MEDS: SUCRALFATE 1 G/10 ML UDC PO SCH ×4 (05:40→21:37)
[2018-12-28] MEDS: BLOOD SUGAR DIAGNOSTIC STRIP TEST SCH ×4 (05:40→21:00)
[2018-12-28] MEDS: PANTOPRAZOLE 40MG DR TABLET PO SCH (05:40)
[2018-12-28] MEDS: SEVELAMER CARBONATE 800 MG TABLET PO SCH ×3 (08:10→18:10)
[2018-12-28] MEDS: INSULIN LISPRO 100 UNITS/ML SUBCUT SCH ×4 (08:10→21:37)
[2018-12-28] MEDS: NEOMY SULF/BACITRAC ZN/POLY OINT 28GM TOP SCH (09:00)
[2018-12-28] MEDS: DOCUSATE SODIUM 250MG CAPSULE PO PRN (12:47)
[2018-12-28] MEDS: LACTULOSE 20G/30ML UDC PO PRN (19:10)
[2018-12-29] VITALS: BP 120/70
[2018-12-29 04:00] VITALS: BP 130/80
[2018-12-29] MEDS: BLOOD SUGAR DIAGNOSTIC STRIP TEST SCH ×4 (05:32→21:35)
[2018-12-29] MEDS: INSULIN LISPRO 100 UNITS/ML SUBCUT SCH ×4 (05:32→21:00)
[2018-12-29] MEDS: ALBUTEROL (0.083%) 2.5MG/3ML NEB HHN PRN (05:51)
[2018-12-29 07:17] LABS: BASOPHILS % 0.8 % (0.0-2.0); EOSINOPHILS % 5.2 % (0.0-5.0); HEMATOCRIT. 23.9 % (42.0-52.0); HEMOGLOBIN. 8.2 g/dL (14.0-18.0); LYMPHOCYTES % 13.8 % (20.0-50.0); MEAN CORPUSCULAR VOLUME 81.3 fL (80.0-94.0); MEAN PLATELET VOLUME 8.6 fl (7.4-10.4); MONOCYTES % 10.3 % (2.0-8.0); NEUTROPHILS % 69.9 % (40.0-76.0); PLATELET 280 x1000/uL (130-400); RED BLOOD CELL COUNT 2.94 mill/uL (4.7-6.1); RED CELL DISTRIBUTION WIDTH 19.3 % (11.6-14.6)
[2018-12-29] MEDS: SUCRALFATE 1 G/10 ML UDC PO SCH ×4 (07:40→20:50)
[2018-12-29] MEDS: PANTOPRAZOLE 40MG DR TABLET PO SCH (07:40)
[2018-12-29 08:00] VITALS: BP 144/75
[2018-12-29] MEDS: SEVELAMER CARBONATE 800 MG TABLET PO SCH ×3 (08:10→17:42)
[2018-12-29] MEDS: FOLIC ACID/VITAMIN B COMP W-C TABLET PO SCH (09:00)
[2018-12-29] MEDS: NEOMY SULF/BACITRAC ZN/POLY OINT 28GM TOP SCH (09:00)
[2018-12-29 12:00] VITALS: BP_SYST 127; BP_SYST 128; BP_DIAS 71; BP_DIAS 76
[2018-12-29 16:30] VITALS: BP 131/72
[2018-12-29 20:00] VITALS: BP 112/57
[2018-12-29] MEDS: EPOETIN ALFA 10000UNITS/ML VIAL SUBCUT SCH (23:48)
[2018-12-30 04:00] VITALS: BP 135/79
[2018-12-30] MEDS: BLOOD SUGAR DIAGNOSTIC STRIP TEST SCH ×2 (05:28→12:40)
[2018-12-30 08:00] VITALS: BP 131/70
[2018-12-30] MEDS: INSULIN LISPRO 100 UNITS/ML SUBCUT SCH ×2 (08:10→12:56)
[2018-12-30] MEDS: SUCRALFATE 1 G/10 ML UDC PO SCH ×2 (08:59→12:40)
[2018-12-30] MEDS: NEOMY SULF/BACITRAC ZN/POLY OINT 28GM TOP SCH (09:00)
[2018-12-30] MEDS: SEVELAMER CARBONATE 800 MG TABLET PO SCH ×2 (09:00→12:56)
[2018-12-30] MEDS: FOLIC ACID/VITAMIN B COMP W-C TABLET PO SCH (09:00)
[2018-12-30] MEDS: PANTOPRAZOLE 40MG DR TABLET PO SCH (09:00)
== END 2018-12-30 15:04 | disposition left against medical advice (07) | DRG 466 ==
LOC: ER 19:13 → 8WST 22:20 → EDBEDREQTM 22:24 → EDBEDREQ 22:24 → ENRESERV 12-18 00:03 → MICUSO 12-18 16:55 → 7WST 12-20 11:11
PROVIDERS: ADMIT Internal Medicine; ATTEND Internal Medicine
PROC: 5A09357 Assistance with Respiratory Ventilation, Less than 24 Consecutive Hours, Continuous Positive Airway Pressure (ICD-10-PCS; 2018-12-18)
PROC: 5A1D70Z Performance of Urinary Filtration, Intermittent, Less than 6 Hours Per Day (ICD-10-PCS; 2018-12-18)
PROC: 5A1D70Z Performance of Urinary Filtration, Intermittent, Less than 6 Hours Per Day (ICD-10-PCS; 2018-12-19)
PROC: 30233N1 Transfusion of Nonautologous Red Blood Cells into Peripheral Vein, Percutaneous Approach (ICD-10-PCS; 2018-12-21)
PROC: 5A1D70Z Performance of Urinary Filtration, Intermittent, Less than 6 Hours Per Day (ICD-10-PCS; 2018-12-21)
PROC: 0DB68ZX Excision of Stomach, Via Natural or Artificial Opening Endoscopic, Diagnostic (ICD-10-PCS; principal; 2018-12-23)
PROC: 5A1D70Z Performance of Urinary Filtration, Intermittent, Less than 6 Hours Per Day (ICD-10-PCS; 2018-12-23)
PROC: 5A1D70Z Performance of Urinary Filtration, Intermittent, Less than 6 Hours Per Day (ICD-10-PCS; 2018-12-25)
PROC: 0JBR0ZZ Excision of Left Foot Subcutaneous Tissue and Fascia, Open Approach (ICD-10-PCS; 2018-12-27)
PROC: 5A1D70Z Performance of Urinary Filtration, Intermittent, Less than 6 Hours Per Day (ICD-10-PCS; 2018-12-27)
PROC: 0JBR0ZZ Excision of Left Foot Subcutaneous Tissue and Fascia, Open Approach (ICD-10-PCS; 2018-12-27)
PROC: 5A1D70Z Performance of Urinary Filtration, Intermittent, Less than 6 Hours Per Day (ICD-10-PCS; 2018-12-29)
PROC: 5A1D70Z Performance of Urinary Filtration, Intermittent, Less than 6 Hours Per Day (ICD-10-PCS; 2018-12-30)
DX: T85.71XA Infection and inflammatory reaction due to peritoneal dialysis catheter, initial encounter (principal); J96.00 Acute respiratory failure, unspecified whether with hypoxia or hypercapnia; I13.2 Hypertensive heart and chronic kidney disease with heart failure and with stage 5 chronic kidney disease, or end stage renal disease; K65.9 Peritonitis, unspecified; J84.9 Interstitial pulmonary disease, unspecified; E44.0 Moderate protein-calorie malnutrition; E11.22 Type 2 diabetes mellitus with diabetic chronic kidney disease; E11.42 Type 2 diabetes mellitus with diabetic polyneuropathy; E83.39 Other disorders of phosphorus metabolism; I08.1 Rheumatic disorders of both mitral and tricuspid valves; I50.43 Acute on chronic combined systolic (congestive) and diastolic (congestive) heart failure; I27.20 Pulmonary hypertension, unspecified; E11.65 Type 2 diabetes mellitus with hyperglycemia; N18.6 End stage renal disease; I42.9 Cardiomyopathy, unspecified; I16.0 Hypertensive urgency; D63.1 Anemia in chronic kidney disease; R13.10 Dysphagia, unspecified; K29.80 Duodenitis without bleeding; Z60.2 Problems related to living alone; Y83.8 Other surgical procedures as the cause of abnormal reaction of the patient, or of later complication, without mention of misadventure at the time of the procedure; M20.42 Other hammer toe(s) (acquired), left foot; M20.41 Other hammer toe(s) (acquired), right foot; F41.9 Anxiety disorder, unspecified; K29.60 Other gastritis without bleeding; L97.529 Non-pressure chronic ulcer of other part of left foot with unspecified severity; D50.9 Iron deficiency anemia, unspecified; Z53.21 Procedure and treatment not carried out due to patient leaving prior to being seen by health care provider; E11.621 Type 2 diabetes mellitus with foot ulcer; M21.622 Bunionette of left foot; M21.621 Bunionette of right foot; Z79.4 Long term (current) use of insulin; Z82.49 Family history of ischemic heart disease and other diseases of the circulatory system; Z87.891 Personal history of nicotine dependence; Z99.2 Dependence on renal dialysis; Z91.15 Patient's noncompliance with renal dialysis; Z91.19 Patient's noncompliance with other medical treatment and regimen; Z79.899 Other long term (current) drug therapy; Z68.23 Body mass index [BMI] 23.0-23.9, adult
CPT/HCPCS: 36415; 36600; 71045; 74220; 80048; 80202; 82270; 82375; 82607; 82668; 82728; 82746; 82805; 82962; 83540; 83550; 83735; 83880; 84100; 84484; 86705; 86706; 86709; 86803; 86850; 86900; 86920; 87340; 88305; 88313; 93005; 93971; 94618; 94640; 94660; 99285; A6261; C9113; J0713; J0885; J1200; J1644; J1815; J2250; J3010; J3370; J3490; J7040; J7050; J7611; P9016; Q0163; Q9963

== ENCOUNTER 2019-01-10 23:33 | Emergency (ER) | payer MEDICAID ==
[~2019-01-10] VITALS: Ht 177.8 cm; Wt 75.0 kg
[2019-01-11 04:48] LABS: EOSINOPHILS % 4.6 % (0.0-5.0); HEMATOCRIT. 30.7 % (42.0-52.0); MEAN CORPUSCULAR HEMOGLOBIN 27.9 pg (28.0-32.0); MEAN CORPUSCULAR VOLUME 85.5 fL (80.0-94.0); MEAN PLATELET VOLUME 9.6 fl (7.4-10.4); MONOCYTES % 7.5 % (2.0-8.0); NEUTROPHILS % 71.9 % (40.0-76.0); PLATELET 328 x1000/uL (130-400); RED BLOOD CELL COUNT 3.59 mill/uL (4.7-6.1); RED CELL DISTRIBUTION WIDTH 20.8 % (11.6-14.6)
[2019-01-11 04:53] LABS: CHLORIDE 103 mEq/L (98-107)
[2019-01-11] MEDS ORDERED: HYDROCODONE/ACETAMINOPHEN 5/325MG TABLET PO PRN (11:00)
[2019-01-11] MEDS ORDERED: ACETAMINOPHEN 325MG TABLET PO PRN (11:00)
[2019-01-11] MEDS ORDERED: DOCUSATE SODIUM 100MG CAPSULE PO PRN (11:00)
[2019-01-11] MEDS ORDERED: MAGNESIUM/ALUMINUM HYDROXIDE/SIMETHICONE 30ML UDC PO PRN (11:00)
[2019-01-11] MEDS ORDERED: DIPHENHYDRAMINE 50MG/ML VIAL IV PRN (11:00)
[2019-01-11] MEDS ORDERED: CLONIDINE 0.1MG TABLET PO PRN (11:00)
[2019-01-11] MEDS ORDERED: ONDANSETRON HCL 4MG/2ML INJ IV PRN (11:00)
[2019-01-11] MEDS ORDERED: GUAIFENESIN 200MG/10ML SUGAR FREE UDC PO PRN (11:00)
[2019-01-11] MEDS ORDERED: AMLODIPINE 10MG TABLET PO SCH (11:00)
[2019-01-11 11:25] VITALS: BP 142/98
== END 2019-01-11 13:03 | disposition left against medical advice (07) ==
LOC: ER 23:33 → EDBEDREQTM 01-11 05:48 → EDBEDREQ 01-11 05:48 → CANBEDREQ 01-11 12:58 → ER 01-11 13:03
DX: E87.70 Fluid overload, unspecified (principal); N18.6 End stage renal disease; Z99.2 Dependence on renal dialysis; Z98.890 Other specified postprocedural states
CPT/HCPCS: 36415; 71045; 93005; 99284

== ENCOUNTER 2019-01-12 00:39 | Inpatient (IN) | payer MEDICAID ==
[~2019-01-12] VITALS: Ht 175.3 cm; Wt 68.0 kg
[2019-01-12] MEDS ORDERED: ONDANSETRON HCL 4MG/2ML INJ IV STA (00:54)
[2019-01-12] MEDS ORDERED: LABETALOL 5MG/ML SYR 20 MG/4 ML SYRINGE IV ONE (01:00)
[2019-01-12 01:10] LABS: BASOPHILS % 0.9 % (0.0-2.0); EOSINOPHILS % 4.2 % (0.0-5.0); HEMATOCRIT. 24.1 % (42.0-52.0); MEAN CORPUSCULAR HEMOGLOBIN 28.4 pg (28.0-32.0); MEAN CORPUSCULAR VOLUME 85.4 fL (80.0-94.0); MEAN PLATELET VOLUME 9.3 fl (7.4-10.4); MONOCYTES % 7.1 % (2.0-8.0); NEUTROPHILS % 65.8 % (40.0-76.0); PLATELET 451 x1000/uL (130-400); RED BLOOD CELL COUNT 2.82 mill/uL (4.7-6.1); RED CELL DISTRIBUTION WIDTH 20.3 % (11.6-14.6)
[2019-01-12] MEDS ORDERED: ALBUTEROL (0.083%) 2.5MG/3ML NEB HHN STA (01:26)
[2019-01-12 01:29] LABS: CHLORIDE 101 mEq/L (98-107)
[2019-01-12] MEDS ORDERED: GUAIFENESIN 200MG/10ML SUGAR FREE UDC PO PRN (07:15)
[2019-01-12] MEDS ORDERED: MORPHINE SULFATE 4 MG/ML CPJ (NOT FOR IM USE) IV PRN (07:15)
[2019-01-12] MEDS ORDERED: IPRATROPIUM/ALBUTEROL 0.5-3(2.5)MG/3ML NEB INH PRN (07:15)
[2019-01-12] MEDS ORDERED: DOCUSATE SODIUM 100MG CAPSULE PO PRN (07:15)
[2019-01-12] MEDS ORDERED: ONDANSETRON HCL 4MG/2ML INJ IV PRN (07:15)
[2019-01-12] MEDS ORDERED: CLONIDINE 0.1MG TABLET PO PRN (07:15)
[2019-01-12] MEDS ORDERED: DIPHENHYDRAMINE 50MG/ML VIAL IV PRN (07:15)
[2019-01-12] MEDS ORDERED: MAGNESIUM/ALUMINUM HYDROXIDE/SIMETHICONE 30ML UDC PO PRN (07:15)
[2019-01-12] MEDS ORDERED: ACETAMINOPHEN 325MG TABLET PO PRN (07:15)
[2019-01-12] MEDS ORDERED: NA PHOS,M-B/NA PHOS,DI-BA ENEMA 118ML PR PRN (07:15)
[2019-01-12] MEDS ORDERED: HYDROCODONE/ACETAMINOPHEN 5/325MG TABLET PO PRN (07:15)
[2019-01-12] MEDS ORDERED: LORAZEPAM 2MG/ML CPJ IV PRN (07:15)
[2019-01-12] MEDS ORDERED: FUROSEMIDE 100MG/10ML VIAL IVP NR (13:30)
[2019-01-12 14:00] VITALS: BP 132/73
[2019-01-12] MEDS ORDERED: AMLODIPINE 5MG TABLET PO SCH (14:00)
[2019-01-12 16:00] VITALS: BP 141/86
[2019-01-12 18:00] VITALS: BP 177/90
[2019-01-12] MEDS ORDERED: IPRATROPIUM/ALBUTEROL 0.5-3(2.5)MG/3ML NEB HHN SCH (18:00)
[2019-01-12 20:00] VITALS: BP 104/57
== END 2019-01-12 23:45 | disposition left against medical advice (07) | DRG 425 ==
LOC: ER 00:48 → 5EST 00:49 → EDBEDREQ 02:35 → EDBEDREQSVC 02:35 → EDBEDREQTM 02:35 → ENRESERV 12:30
PROVIDERS: ADMIT Internal Medicine; ATTEND Internal Medicine
PROC: 5A09357 Assistance with Respiratory Ventilation, Less than 24 Consecutive Hours, Continuous Positive Airway Pressure (ICD-10-PCS; principal; 2019-01-12)
PROC: 5A1D70Z Performance of Urinary Filtration, Intermittent, Less than 6 Hours Per Day (ICD-10-PCS; 2019-01-12)
DX: E87.5 Hyperkalemia (principal); J96.01 Acute respiratory failure with hypoxia; I13.2 Hypertensive heart and chronic kidney disease with heart failure and with stage 5 chronic kidney disease, or end stage renal disease; E46 Unspecified protein-calorie malnutrition; E11.22 Type 2 diabetes mellitus with diabetic chronic kidney disease; I27.20 Pulmonary hypertension, unspecified; I08.3 Combined rheumatic disorders of mitral, aortic and tricuspid valves; N18.6 End stage renal disease; I50.33 Acute on chronic diastolic (congestive) heart failure; Z53.21 Procedure and treatment not carried out due to patient leaving prior to being seen by health care provider; D63.8 Anemia in other chronic diseases classified elsewhere; F41.9 Anxiety disorder, unspecified; K21.9 Gastro-esophageal reflux disease without esophagitis; Z82.49 Family history of ischemic heart disease and other diseases of the circulatory system; Z87.891 Personal history of nicotine dependence; Z91.15 Patient's noncompliance with renal dialysis; Z91.19 Patient's noncompliance with other medical treatment and regimen; Z99.2 Dependence on renal dialysis; Z79.899 Other long term (current) drug therapy
CPT/HCPCS: 36415; 71045; 80048; 82962; 83880; 84484; 93005; 94640; 94660; 99291; J2060; J2405; J3490; J7611; J7620

== ENCOUNTER 2019-05-10 02:15 | Emergency (ER) | payer SELFPAY ==
[~2019-05-10] VITALS: Ht 175.3 cm; Wt 73.0 kg
[2019-05-10] MEDS ORDERED: ONDANSETRON HCL 4MG/2ML INJ IV STA (02:21)
[2019-05-10] MEDS ORDERED: LABETALOL 5MG/ML SYR 20 MG/4 ML SYRINGE IV NR (02:30)
[2019-05-10] MEDS ORDERED: LABETALOL HCL 20MG/4ML CARPUJECT IV ONE (02:30)
[2019-05-10 02:43] LABS: BASOPHILS % 0.8 % (0.0-2.0); EOSINOPHILS % 3.2 % (0.0-5.0); HEMATOCRIT. 40.5 % (42.0-52.0); HEMOGLOBIN. 13.5 g/dL (14.0-18.0); LYMPHOCYTES % 32.7 % (20.0-50.0); MEAN CORPUSCULAR HEMOGLOBIN 28.9 pg (28.0-32.0); MEAN CORPUSCULAR VOLUME 86.9 fL (80.0-94.0); MONOCYTES % 9.2 % (2.0-8.0); NEUTROPHILS % 54.1 % (40.0-76.0); PLATELET 281 x1000/uL (130-400); RED BLOOD CELL COUNT 4.66 mill/uL (4.7-6.1); RED CELL DISTRIBUTION WIDTH 18.8 % (11.6-14.6)
[2019-05-10 02:51] LABS: CHLORIDE 97 mEq/L (98-107)
[2019-05-10 06:35] VITALS: BP 110/66
== END 2019-05-10 06:51 | disposition left against medical advice (07) ==
LOC: ER 02:15 → EDBEDREQ 05:43 → EDBEDREQTM 05:43 → EDBEDREQSVC 05:43 → ER 06:51 → CANBEDREQ 07:00
DX: J96.00 Acute respiratory failure, unspecified whether with hypoxia or hypercapnia (principal); J81.1 Chronic pulmonary edema; I13.2 Hypertensive heart and chronic kidney disease with heart failure and with stage 5 chronic kidney disease, or end stage renal disease; N18.6 End stage renal disease; I50.9 Heart failure, unspecified; Z99.2 Dependence on renal dialysis; Z98.890 Other specified postprocedural states
CPT/HCPCS: 36415; 71045; 80053; 83880; 84484; 85025; 93005; 94660; 96374; 99291; J2405; J3490

== ENCOUNTER 2019-10-08 12:06 | Emergency (ER) | payer MEDICAID ==
[~2019-10-08] VITALS: Ht 175.3 cm; Wt 80.0 kg
[2019-10-08] MEDS ORDERED: ACETAMINOPHEN 325MG TABLET PO ONE (12:30)
[2019-10-08 14:24] VITALS: BP 135/78
== END 2019-10-08 14:35 | disposition home or self-care (01) ==
LOC: ER 12:13
DX: S00.93XA Contusion of unspecified part of head, initial encounter (principal); M79.18 Myalgia, other site; Y08.89XA Assault by other specified means, initial encounter; Y93.9 Activity, unspecified; Y92.9 Unspecified place or not applicable; I13.2 Hypertensive heart and chronic kidney disease with heart failure and with stage 5 chronic kidney disease, or end stage renal disease; N18.6 End stage renal disease; I50.9 Heart failure, unspecified; Z99.2 Dependence on renal dialysis
CPT/HCPCS: 70450; 72100; 99284; Z7610

== ENCOUNTER 2020-04-18 15:07 | Inpatient (IN) | payer MEDICAID ==
[~2020-04-18] VITALS: Ht 165.1 cm; Wt 75.3 kg
[~2020-04-18 15:07] MED LIST changes: +OMEP40CA12 PO; -OMEP40CA34 PO
[2020-04-18 19:22] LABS: BASOPHILS % 0.4 % (0.0-2.0); EOSINOPHILS % 3.4 % (0.0-5.0); HEMATOCRIT. 36.5 % (42.0-52.0); HEMOGLOBIN. 12.6 g/dL (14.0-18.0); LYMPHOCYTES % 17.4 % (20.0-50.0); MEAN CORPUSCULAR HEMOGLOBIN 31.1 pg (28.0-32.0); MEAN CORPUSCULAR VOLUME 89.9 fL (80.0-94.0); MONOCYTES % 8.7 % (2.0-8.0); NEUTROPHILS % 70.1 % (40.0-76.0); PLATELET 193 x1000/uL (130-400); RED BLOOD CELL COUNT 4.06 mill/uL (4.7-6.1); RED CELL DISTRIBUTION WIDTH 14.9 % (11.6-14.6)
[2020-04-18 19:29] LABS: CHLORIDE 103 mEq/L (98-107)
[2020-04-18 19:38] LABS: INR 1.1; PROTHROMBIN TIME 11.5 sec (9.6-11.0)
[2020-04-19] MEDS ORDERED: CLONIDINE 0.1MG TABLET PO PRN (07:45)
[2020-04-19] MEDS ORDERED: NIFEDIPINE XL 60MG TAB PO SCH (07:45)
[2020-04-19] MEDS ORDERED: ONDANSETRON HCL 4MG/2ML INJ IV PRN (07:45)
[2020-04-19] MEDS ORDERED: ACETAMINOPHEN 325MG TABLET PO PRN (07:45)
[2020-04-19] MEDS ORDERED: CEFAZOLIN 1000MG PREMIX 50 ML IV ONE ×2 (08:45→08:49)
[2020-04-19 08:49] VITALS: BP 183/88
[2020-04-19 09:15] VITALS: BP 185/95
[2020-04-19 09:30] VITALS: BP 189/90
[2020-04-19 09:35] VITALS: BP 187/91
[2020-04-19 09:49] VITALS: BP_SYST 183; BP_SYST 189; BP_DIAS 88; BP_DIAS 90
[2020-04-19 10:05] VITALS: BP 161/92
[2020-04-19] MEDS ORDERED: HYDRALAZINE 20MG/ML VIAL IV PRN (10:15)
== END 2020-04-19 10:15 | disposition left against medical advice (07) | DRG 466 ==
LOC: ER 15:07 → MICUSO 20:46 → EDBEDREQTM 20:51 → EDBEDREQ 20:51
PROVIDERS: ADMIT Internal Medicine; ATTEND Internal Medicine
PROC: 0JH63XZ Insertion of Tunneled Vascular Access Device into Chest Subcutaneous Tissue and Fascia, Percutaneous Approach (ICD-10-PCS; principal; 2020-04-18)
PROC: 02HV33Z Insertion of Infusion Device into Superior Vena Cava, Percutaneous Approach (ICD-10-PCS; 2020-04-18)
PROC: B518ZZA Fluoroscopy of Superior Vena Cava, Guidance (ICD-10-PCS; 2020-04-18)
PROC: 5A1D70Z Performance of Urinary Filtration, Intermittent, Less than 6 Hours Per Day (ICD-10-PCS; 2020-04-19)
DX: T82.41XA Breakdown (mechanical) of vascular dialysis catheter, initial encounter (principal); N18.6 End stage renal disease; I13.2 Hypertensive heart and chronic kidney disease with heart failure and with stage 5 chronic kidney disease, or end stage renal disease; E11.22 Type 2 diabetes mellitus with diabetic chronic kidney disease; D63.8 Anemia in other chronic diseases classified elsewhere; Y65.8 Other specified misadventures during surgical and medical care; I50.9 Heart failure, unspecified; Y71.2 Prosthetic and other implants, materials and accessory cardiovascular devices associated with adverse incidents; Z53.29 Procedure and treatment not carried out because of patient's decision for other reasons; Z79.899 Other long term (current) drug therapy; Z99.2 Dependence on renal dialysis; Z82.49 Family history of ischemic heart disease and other diseases of the circulatory system; Y92.89 Other specified places as the place of occurrence of the external cause; Z91.19 Patient's noncompliance with other medical treatment and regimen; Z83.3 Family history of diabetes mellitus
CPT/HCPCS: 36415; 71045; 77001; 80053; 85025; 93005; 99285; C1750; C1769; J0690

== ENCOUNTER 2020-05-04 07:50 | Emergency (ER) | payer MEDICAID ==
[~2020-05-04] VITALS: Ht 175.3 cm; Wt 75.0 kg
[2020-05-04 09:26] LABS: BASOPHILS % 1.1 % (0.0-2.0); EOSINOPHILS % 7.1 % (0.0-5.0); HEMATOCRIT. 34.4 % (42.0-52.0); HEMOGLOBIN. 11.9 g/dL (14.0-18.0); LYMPHOCYTES % 14.2 % (20.0-50.0); MEAN CORPUSCULAR HEMOGLOBIN 30.3 pg (28.0-32.0); MEAN CORPUSCULAR VOLUME 87.5 fL (80.0-94.0); MEAN PLATELET VOLUME 8.5 fl (7.4-10.4); MONOCYTES % 9.5 % (2.0-8.0); NEUTROPHILS % 68.1 % (40.0-76.0); PLATELET 183 x1000/uL (130-400); RED BLOOD CELL COUNT 3.94 mill/uL (4.7-6.1); RED CELL DISTRIBUTION WIDTH 15.5 % (11.6-14.6)
[2020-05-04 09:32] LABS: CHLORIDE 102 mEq/L (98-107)
[2020-05-04 09:35] LABS: INR 1.1; PROTHROMBIN TIME 11.4 sec (9.6-11.0)
[2020-05-04] MEDS ORDERED: AMOXICILLIN/POTASSIUM CLAVULANATE 875/125MG TAB PO ONE (10:00)
[2020-05-04] MEDS ORDERED: LIDOCAINE HCL 1% 20ML VIAL (Pyxis) INJ ONE (10:43)
[2020-05-04] MEDS ORDERED: SODIUM BICARBONATE 4% (2.4MEQ) 5ML VIAL IV ONE (10:43)
[2020-05-04 11:45] VITALS: BP 195/105
[2020-05-04] MEDS ORDERED: FENTANYL CITRATE/PF 50MCG/ML 2ML VIAL ONE (11:45)
[2020-05-04] MEDS ORDERED: CEFAZOLIN 1000MG PREMIX 50 ML IV ONE (11:45)
[2020-05-04 11:58] VITALS: BP 186/98
[2020-05-04 11:59] VITALS: BP 195/105
[2020-05-04] MEDS ORDERED: CEFAZOLIN 1000MG PREMIX 50 ML IV SCH (12:00)
[2020-05-04 13:06] VITALS: BP 170/90
== END 2020-05-04 13:17 | disposition home or self-care (01) ==
LOC: ER 07:50
DX: T85.618A Breakdown (mechanical) of other specified internal prosthetic devices, implants and grafts, initial encounter (principal); L97.529 Non-pressure chronic ulcer of other part of left foot with unspecified severity; I11.0 Hypertensive heart disease with heart failure; I50.9 Heart failure, unspecified; Z79.899 Other long term (current) drug therapy
CPT/HCPCS: 36415; 73630; 77001; 80053; 85025; 85610; 96365; 99284; C1750; C1769; J0690; J1642; J3490; Z7610; J3010

== ENCOUNTER 2020-05-14 07:14 | Emergency (ER) | payer MEDICAID ==
[~2020-05-14] VITALS: Ht 172.7 cm; Wt 74.0 kg
[2020-05-14 08:52] LABS: HEMATOCRIT. 27.9 % (42.0-52.0); HEMOGLOBIN. 9.6 g/dL (14.0-18.0); MEAN CORPUSCULAR HEMOGLOBIN 29.8 pg (28.0-32.0); MEAN CORPUSCULAR VOLUME 86.6 fL (80.0-94.0); MEAN PLATELET VOLUME 9.3 fl (7.4-10.4); PLATELET 243 x1000/uL (130-400); RED BLOOD CELL COUNT 3.22 mill/uL (4.7-6.1); RED CELL DISTRIBUTION WIDTH 15.5 % (11.6-14.6)
[2020-05-14 08:57] LABS: CHLORIDE 99 mEq/L (98-107)
[2020-05-14 09:02] LABS: INR 1.1; PROTHROMBIN TIME 11.5 sec (9.6-11.0)
[2020-05-14] MEDS ORDERED: PIPERACILLIN/TAZOBACTAM 3.375GM/50ML PREMIX IV ONE (09:15)
[2020-05-14] MEDS ORDERED: VANCOMYCIN 1 G PREMIX 200 ML IV SCH (09:15)
[2020-05-14 09:29] LABS: PLATELET ESTIMATE NORMAL
[2020-05-14] MEDS ORDERED: PIPERACILLIN/TAZOBACTAM 3.375 G in DEXT 5% WATER 100 ML IV SCH (10:00)
[2020-05-14 10:46] VITALS: BP 158/63
== END 2020-05-14 12:49 | disposition left against medical advice (07) ==
LOC: ER 07:14 → CANBEDREQ 16:40
DX: M86.8X7 Other osteomyelitis, ankle and foot (principal); I96 Gangrene, not elsewhere classified; E11.22 Type 2 diabetes mellitus with diabetic chronic kidney disease; N18.6 End stage renal disease; Z99.2 Dependence on renal dialysis
CPT/HCPCS: 36415; 73630; 80053; 85025; 85610; 85651; 86141; 87040; 93005; 96374; 96375; 99285; J2543; J3370; J7060

== ENCOUNTER 2021-08-22 08:23 | Emergency (ER) | payer OTHER, MEDICAID ==
[~2021-08-22] VITALS: Ht 175.3 cm; Wt 74.0 kg
[2021-08-22] VITALS (8 sets, daily range): BP systolic 92–202; BP diastolic 92–98
[~2021-08-22 08:23] MED LIST changes: -OMEP40CA12 PO; +OMEP40CA20 PO
[2021-08-22] MEDS: CEFAZOLIN 1000MG PREMIX 50 ML IV NR ×2 (09:15→09:30)
[2021-08-22 09:17] LABS: BASOPHILS % 0.8 % (0.0-2.0); EOSINOPHILS % 6.6 % (0.0-5.0); HEMATOCRIT. 33.5 % (42.0-52.0); HEMOGLOBIN. 11.2 g/dL (14.0-18.0); LYMPHOCYTES % 17.7 % (20.0-50.0); MEAN CORPUSCULAR HEMOGLOBIN 28.2 pg (28.0-32.0); MEAN CORPUSCULAR VOLUME 84.7 fL (80.0-94.0); MEAN PLATELET VOLUME 8.1 fl (7.4-10.4); MONOCYTES % 8.8 % (2.0-8.0); NEUTROPHILS % 66.1 % (40.0-76.0); PLATELET 207 x1000/uL (130-400); RED BLOOD CELL COUNT 3.96 mill/uL (4.7-6.1)
[2021-08-22 09:23] LABS: CHLORIDE 101 mEq/L (98-107)
[2021-08-22 09:30] LABS: PARTIAL THROMBOPLASTIN TIME 29.2 sec (23.4-31.0)
[2021-08-22] MEDS ORDERED: LIDOCAINE HCL 1% 30ML VIAL (10MG/ML) ONE (12:33)
== END 2021-08-22 13:51 | disposition home or self-care (01) ==
LOC: ER 08:23
DX: Z49.02 Encounter for fitting and adjustment of peritoneal dialysis catheter (principal); I12.0 Hypertensive chronic kidney disease with stage 5 chronic kidney disease or end stage renal disease; E11.22 Type 2 diabetes mellitus with diabetic chronic kidney disease; N18.6 End stage renal disease; Z99.2 Dependence on renal dialysis; N17.9 Acute kidney failure, unspecified; Z20.822 Contact with and (suspected) exposure to COVID-19
CPT/HCPCS: 36415; 36558; 71045; 77001; 80053; 85025; 85610; 85730; 87426; 96365; 99284; C1725; C1750; C1769; J0690; J1642; J3490; Z7610

== ENCOUNTER 2021-11-05 15:53 | Emergency (ER) | payer MEDICAID, OTHER ==
[~2021-11-05] VITALS: Ht 172.7 cm; Wt 73.0 kg
[2021-11-05 16:21] VITALS: BP 126/60
[2021-11-05] MEDS ORDERED: ACETAMINOPHEN 325MG TABLET PO ONE ×2 (17:15→17:30)
[2021-11-05] MEDS ORDERED: VANCOMYCIN 1 G PREMIX 200 ML IV SCH (17:30)
[2021-11-05] MEDS ORDERED: PIPERACILLIN/TAZ 3.375G PREMIX 50 ML IV ONE (17:30)
[2021-11-05 17:39] LABS: HEMATOCRIT. 28.8 % (42.0-52.0); HEMOGLOBIN. 9.1 g/dL (14.0-18.0); MEAN CORPUSCULAR VOLUME 82.7 fL (80.0-94.0); MEAN PLATELET VOLUME 8.9 fl (7.4-10.4); PLATELET 398 x1000/uL (130-400); RED BLOOD CELL COUNT 3.49 mill/uL (4.7-6.1); RED CELL DISTRIBUTION WIDTH 17.1 % (11.6-14.6)
[2021-11-05 17:41] LABS: CHLORIDE 89 mEq/L (98-107)
[2021-11-05] MEDS ORDERED: INSULIN REGULAR (HUMULIN R) 300UNITS/3ML VIAL IV STA (19:43)
[2021-11-05 21:21] LABS: PLATELET ESTIMATE NORMAL
== END 2021-11-05 20:30 | disposition left against medical advice (07) ==
LOC: ER 16:05 → CANBEDREQ 11-06 03:36
DX: E11.621 Type 2 diabetes mellitus with foot ulcer (principal); Z98.890 Other specified postprocedural states
CPT/HCPCS: 36415; 71045; 73630; 80053; 83605; 83880; 84484; 85025; 86140; 93005; 99285

== ENCOUNTER 2021-12-30 02:21 | Inpatient (IN) | payer MEDICAID, OTHER ==
[~2021-12-30] VITALS: Ht 167.6 cm; Wt 69.9 kg
[2021-12-30] MEDS ORDERED: VANCOMYCIN 1G PREMIX 200 ML IV ONE (04:00)
[2021-12-30] MEDS ORDERED: PIPERACILLIN/TAZ 3.375G PREMIX 50 ML IV ONE (04:00)
[2021-12-30 05:28] LABS: BASOPHILS % 0.5 % (0.0-2.0); EOSINOPHILS % 1.6 % (0.0-5.0); LYMPHOCYTES % 7.5 % (20.0-50.0); MEAN CORPUSCULAR HEMOGLOBIN 24.1 pg (28.0-32.0); MEAN CORPUSCULAR VOLUME 76.9 fL (80.0-94.0); MEAN PLATELET VOLUME 8.3 fl (7.4-10.4); MONOCYTES % 6.2 % (2.0-8.0); NEUTROPHILS % 84.2 % (40.0-76.0); PLATELET 526 x1000/uL (130-400); RED BLOOD CELL COUNT 2.51 mill/uL (4.7-6.1); RED CELL DISTRIBUTION WIDTH 19.9 % (11.6-14.6)
[2021-12-30 05:32] LABS: HEMATOCRIT. 19.3 % (42.0-52.0)
[2021-12-30 05:37] LABS: CHLORIDE 96 mEq/L (98-107)
[2021-12-30] MEDS ORDERED: ACETAMINOPHEN 325MG TABLET PO PRN ×2 (10:30)
[2021-12-30] MEDS ORDERED: CLONIDINE 0.1MG TABLET PO PRN (10:30)
[2021-12-30] MEDS ORDERED: HYDROCODONE/ACETAMINOPHEN 5/325MG TABLET PO PRN (10:30)
[2021-12-30] MEDS ORDERED: LORAZEPAM 0.5MG TABLET PO PRN (10:30)
[2021-12-30] MEDS ORDERED: IPRATROPIUM/ALBUTEROL 0.5-3(2.5)MG/3ML NEB HHN PRN (10:30)
[2021-12-30] MEDS ORDERED: ONDANSETRON HCL 4MG/2ML INJ IV PRN (10:30)
[2021-12-30] MEDS ORDERED: DOCUSATE SODIUM 100MG CAPSULE PO PRN (10:30)
[2021-12-30] MEDS ORDERED: PIPERACILLIN/TAZ 3.375G PREMIX 50 ML IV NR (10:45)
[2021-12-30] MEDS ORDERED: NALOXONE HCL 0.4MG/ML VIAL IV PRN (10:45)
[2021-12-30] MEDS ORDERED: VANCOMYCIN 500MG PREMIX 100 ML IV NR (11:30)
[2021-12-30 14:13] LABS: INR 1.2; PROTHROMBIN TIME 12.8 sec (9.6-11.0)
[2021-12-30 14:29] LABS: HEMATOCRIT. 22.6 % (42.0-52.0); HEMOGLOBIN. 7.2 g/dL (14.0-18.0); MEAN CORPUSCULAR HEMOGLOBIN 24.9 pg (28.0-32.0); MEAN CORPUSCULAR VOLUME 78.1 fL (80.0-94.0); MEAN PLATELET VOLUME 9.4 fl (7.4-10.4); PLATELET 518 x1000/uL (130-400); RED BLOOD CELL COUNT 2.89 mill/uL (4.7-6.1); RED CELL DISTRIBUTION WIDTH 19.4 % (11.6-14.6)
[2021-12-30 15:11] LABS: PLATELET ESTIMATE INCREASED
[2021-12-30 19:10] LABS: HEMATOCRIT. 25.4 % (42.0-52.0); HEMOGLOBIN. 8.4 g/dL (14.0-18.0); MEAN CORPUSCULAR HEMOGLOBIN 26.5 pg (28.0-32.0); MEAN CORPUSCULAR VOLUME 80.1 fL (80.0-94.0); MEAN PLATELET VOLUME 7.9 fl (7.4-10.4); PLATELET 454 x1000/uL (130-400); RED BLOOD CELL COUNT 3.17 mill/uL (4.7-6.1); RED CELL DISTRIBUTION WIDTH 20.7 % (11.6-14.6)
[2021-12-30 20:44] LABS: PLATELET ESTIMATE INCREASED
[2021-12-30] MEDS ORDERED: PIPERACILLIN/TAZOBACTAM 3.375 G in DEXTROSE 5% WATER 50 ML IV SCH (21:00)
[2021-12-31] MEDS: PANTOPRAZOLE SODIUM 40 MG/VIAL IV SCH ×3 (00:22→21:40)
[2021-12-31 02:09] VITALS: BP 132/68
[2021-12-31] MEDS ORDERED: DEXTROSE 50% WATER 50ML SYRINGE IV PRN (03:30)
[2021-12-31 03:50] VITALS: BP 132/68
[2021-12-31] MEDS: BLOOD SUGAR DIAGNOSTIC STRIP TEST SCH ×4 (07:21→21:41)
[2021-12-31 07:44] LABS: FOLIC ACID (FOLATE) SERUM 8.3 ng/mL (>5.38)
[2021-12-31] MEDS: INSULIN LISPRO 100 UNITS/ML SUBCUT SCH ×5 (07:50→21:44)
[2021-12-31 08:00] VITALS: BP 129/71
[2021-12-31 08:11] LABS: PHOSPHORUS 4.5 mg/dL (2.5-4.9)
[2021-12-31] MEDS: AMLODIPINE 5MG TABLET PO SCH (08:29)
[2021-12-31 11:24] LABS: HEMATOCRIT. 25.3 % (42.0-52.0); HEMOGLOBIN. 8.3 g/dL (14.0-18.0); MEAN CORPUSCULAR HEMOGLOBIN 25.4 pg (28.0-32.0); MEAN CORPUSCULAR VOLUME 77.9 fL (80.0-94.0); MEAN PLATELET VOLUME 7.9 fl (7.4-10.4); PLATELET 507 x1000/uL (130-400); RED BLOOD CELL COUNT 3.25 mill/uL (4.7-6.1); RED CELL DISTRIBUTION WIDTH 20.8 % (11.6-14.6)
[2021-12-31] MEDS: PIPERACILLIN/TAZOBACTAM 3.375 G in DEXTROSE 5% WATER 50 ML IV SCH ×2 (11:25→21:40)
[2021-12-31 11:36] LABS: INR 1.2; PROTHROMBIN TIME 12.6 sec (9.6-11.0)
[2021-12-31 12:00] VITALS: BP 125/71
[2021-12-31] MEDS: SODIUM HYPOCHLORITE (0.25%) 480ML SOLUTION (HALF STRENGTH) TOP SCH (12:50)
[2021-12-31 13:15] LABS: PLATELET ESTIMATE INCREASED
[2021-12-31] MEDS ORDERED: MIDAZOLAM HCL 5 MG/5 ML VIAL IV PRN (14:30)
[2021-12-31] MEDS ORDERED: FENTANYL CITRATE/PF 50MCG/ML 2ML VIAL IV PRN (14:31)
[2021-12-31] MEDS ORDERED: DIAZEPAM 5 MG/ML 2ML CPJ IV PRN (14:33)
[2021-12-31] MEDS ORDERED: MIDAZOLAM HCL 5 MG/5 ML VIAL ONE (14:40)
[2021-12-31] MEDS ORDERED: FENTANYL CITRATE/PF 50MCG/ML 2ML VIAL ONE (14:40)
[2021-12-31] MEDS ORDERED: DIAZEPAM 5 MG/ML 2ML CPJ ONE (14:44)
[2021-12-31 16:00] VITALS: BP 131/70
[2021-12-31] MEDS ORDERED: VANCOMYCIN 750MG PREMIX 150 ML IV SCH (18:00)
[2021-12-31 20:00] VITALS: BP 113/70
[2021-12-31] MEDS ORDERED: PIPERACILLIN/TAZOBACTAM 3.375 G in DEXTROSE 5% WATER 50 ML IV SCH (21:00)
[2021-12-31] MEDS: ATORVASTATIN CALCIUM 10MG TABLET PO SCH (21:40)
[2022-01-01] VITALS: BP 114/65
[2022-01-01 04:00] VITALS: BP 114/65
[2022-01-01] MEDS: BLOOD SUGAR DIAGNOSTIC STRIP TEST SCH ×4 (07:21→21:00)
[2022-01-01 07:33] LABS: HEMATOCRIT. 23.9 % (42.0-52.0); HEMOGLOBIN. 7.9 g/dL (14.0-18.0); MEAN CORPUSCULAR HEMOGLOBIN 25.8 pg (28.0-32.0); MEAN CORPUSCULAR VOLUME 77.9 fL (80.0-94.0); MEAN PLATELET VOLUME 8.2 fl (7.4-10.4); PLATELET 441 x1000/uL (130-400); RED BLOOD CELL COUNT 3.07 mill/uL (4.7-6.1); RED CELL DISTRIBUTION WIDTH 21.4 % (11.6-14.6)
[2022-01-01 08:30] VITALS: BP 99/60
[2022-01-01] MEDS: AMLODIPINE 5MG TABLET PO SCH (09:00)
[2022-01-01] MEDS: PIPERACILLIN/TAZOBACTAM 3.375 G in DEXTROSE 5% WATER 50 ML IV SCH ×2 (09:43→20:41)
[2022-01-01] MEDS: PANTOPRAZOLE SODIUM 40 MG/VIAL IV SCH ×2 (09:43→20:41)
[2022-01-01] MEDS: INSULIN LISPRO 100 UNITS/ML SUBCUT SCH ×4 (09:48→21:55)
[2022-01-01] MEDS: SODIUM HYPOCHLORITE (0.25%) 480ML SOLUTION (HALF STRENGTH) TOP SCH (09:50)
[2022-01-01 12:30] VITALS: BP 116/64
[2022-01-01 15:40] LABS: PLATELET ESTIMATE INCREASED
[2022-01-01 16:28] LABS: HEPATITIS B SURFACE ANTIGEN NEGATIVE
[2022-01-01 16:30] VITALS: BP 105/53
[2022-01-01 20:00] VITALS: BP 121/56
[2022-01-01] MEDS: ATORVASTATIN CALCIUM 10MG TABLET PO SCH (20:41)
[2022-01-02] VITALS: BP 122/80
[2022-01-02 04:00] VITALS: BP 124/74
[2022-01-02] MEDS: BLOOD SUGAR DIAGNOSTIC STRIP TEST SCH ×4 (06:58→21:00)
[2022-01-02 07:00] LABS: BASOPHILS % 0.4 % (0.0-2.0); EOSINOPHILS % 1.8 % (0.0-5.0); HEMATOCRIT. 22.4 % (42.0-52.0); HEMOGLOBIN. 7.5 g/dL (14.0-18.0); LYMPHOCYTES % 8.1 % (20.0-50.0); MEAN CORPUSCULAR HEMOGLOBIN 26.4 pg (28.0-32.0); MEAN PLATELET VOLUME 7.7 fl (7.4-10.4); MONOCYTES % 9.6 % (2.0-8.0); NEUTROPHILS % 80.1 % (40.0-76.0); PLATELET 356 x1000/uL (130-400); RED BLOOD CELL COUNT 2.84 mill/uL (4.7-6.1); RED CELL DISTRIBUTION WIDTH 20.7 % (11.6-14.6)
[2022-01-02 08:00] VITALS: BP 104/52
[2022-01-02] MEDS: AMLODIPINE 5MG TABLET PO SCH (09:00)
[2022-01-02] MEDS: PANTOPRAZOLE SODIUM 40 MG/VIAL IV SCH ×3 (09:46→21:09)
[2022-01-02] MEDS: PIPERACILLIN/TAZOBACTAM 3.375 G in DEXTROSE 5% WATER 50 ML IV SCH ×4 (09:46→23:57)
[2022-01-02] MEDS: SODIUM HYPOCHLORITE (0.25%) 480ML SOLUTION (HALF STRENGTH) TOP SCH (09:47)
[2022-01-02] MEDS: INSULIN LISPRO 100 UNITS/ML SUBCUT SCH ×4 (09:50→21:11)
[2022-01-02] MEDS ORDERED: SORBITOL 70% SOLN 30ML PO SCH ×2 (11:00→16:00)
[2022-01-02 12:00] VITALS: BP 100/59
[2022-01-02] MEDS ORDERED: IOHEXOL-350 100 ML BOTTLE ONE (13:34)
[2022-01-02 16:00] VITALS: BP 116/53
[2022-01-02] MEDS ORDERED: METOCLOPRAMIDE HCL 10MG/2ML VIAL IV SCH (18:00)
[2022-01-02 20:00] VITALS: BP 119/78
[2022-01-02] MEDS: ATORVASTATIN CALCIUM 10MG TABLET PO SCH (21:09)
[2022-01-02] MEDS: SORBITOL 70% SOLN 30ML PO SCH ×2 (21:09→23:57)
[2022-01-02] MEDS: METOCLOPRAMIDE HCL 10MG/2ML VIAL IV SCH (23:57)
[2022-01-03] VITALS: BP 105/45
[2022-01-03 00:26] VITALS: BP 117/74
[2022-01-03 04:00] VITALS: BP 115/66
[2022-01-03] MEDS: SORBITOL 70% SOLN 30ML PO SCH ×2 (04:00→08:00)
[2022-01-03] MEDS: METOCLOPRAMIDE HCL 10MG/2ML VIAL IV SCH ×3 (05:37→17:27)
[2022-01-03] MEDS: BLOOD SUGAR DIAGNOSTIC STRIP TEST SCH ×4 (06:17→21:00)
[2022-01-03 06:57] LABS: INR 1.3; PROTHROMBIN TIME 13.3 sec (9.6-11.0)
[2022-01-03 07:05] LABS: BASOPHILS % 0.4 % (0.0-2.0); EOSINOPHILS % 0.8 % (0.0-5.0); HEMATOCRIT. 24.3 % (42.0-52.0); HEMOGLOBIN. 8.5 g/dL (14.0-18.0); LYMPHOCYTES % 8.1 % (20.0-50.0); MEAN CORPUSCULAR HEMOGLOBIN 26.9 pg (28.0-32.0); MEAN CORPUSCULAR VOLUME 77.1 fL (80.0-94.0); MEAN PLATELET VOLUME 8.1 fl (7.4-10.4); MONOCYTES % 9.2 % (2.0-8.0); NEUTROPHILS % 81.5 % (40.0-76.0); PLATELET 440 x1000/uL (130-400); RED BLOOD CELL COUNT 3.15 mill/uL (4.7-6.1); RED CELL DISTRIBUTION WIDTH 20.9 % (11.6-14.6)
[2022-01-03] MEDS: INSULIN LISPRO 100 UNITS/ML SUBCUT SCH ×4 (07:50→21:54)
[2022-01-03 08:00] VITALS: BP 121/62
[2022-01-03] MEDS: AMLODIPINE 5MG TABLET PO SCH (08:34)
[2022-01-03] MEDS: PIPERACILLIN/TAZOBACTAM 3.375 G in DEXTROSE 5% WATER 50 ML IV SCH ×2 (08:41→21:54)
[2022-01-03] MEDS: SODIUM HYPOCHLORITE (0.25%) 480ML SOLUTION (HALF STRENGTH) TOP SCH (08:42)
[2022-01-03] MEDS: PANTOPRAZOLE SODIUM 40 MG/VIAL IV SCH ×2 (08:42→21:53)
[2022-01-03] MEDS ORDERED: PROPOFOL 200MG/20ML VIAL IV ONE (11:24)
[2022-01-03] MEDS ORDERED: MIDAZOLAM HCL 2 MG/2 ML VIAL ONE (11:28)
[2022-01-03 16:00] VITALS: BP 106/70
[2022-01-03 20:00] VITALS: BP 118/72
[2022-01-03] MEDS: ATORVASTATIN CALCIUM 10MG TABLET PO SCH (21:54)
[2022-01-04] VITALS (8 sets, daily range): BP systolic 97–132; BP diastolic 31–82
[2022-01-04 06:54] LABS: BASOPHILS % 0.2 % (0.0-2.0); EOSINOPHILS % 0.5 % (0.0-5.0); HEMATOCRIT. 22.7 % (42.0-52.0); HEMOGLOBIN. 7.3 g/dL (14.0-18.0); LYMPHOCYTES % 9.8 % (20.0-50.0); MEAN CORPUSCULAR HEMOGLOBIN 25.6 pg (28.0-32.0); MEAN CORPUSCULAR VOLUME 79.6 fL (80.0-94.0); MONOCYTES % 7.9 % (2.0-8.0); NEUTROPHILS % 81.6 % (40.0-76.0); PLATELET 377 x1000/uL (130-400); RED BLOOD CELL COUNT 2.85 mill/uL (4.7-6.1); RED CELL DISTRIBUTION WIDTH 20.3 % (11.6-14.6)
[2022-01-04] MEDS: PANTOPRAZOLE SODIUM 40 MG/VIAL IV SCH ×2 (07:35→20:52)
[2022-01-04] MEDS: PIPERACILLIN/TAZOBACTAM 3.375 G in DEXTROSE 5% WATER 50 ML IV SCH ×2 (07:37→22:26)
[2022-01-04] MEDS: BLOOD SUGAR DIAGNOSTIC STRIP TEST SCH ×4 (07:37→20:53)
[2022-01-04] MEDS: INSULIN LISPRO 100 UNITS/ML SUBCUT SCH ×4 (08:24→20:53)
[2022-01-04] MEDS: AMLODIPINE 5MG TABLET PO SCH (08:25)
[2022-01-04] MEDS: SODIUM HYPOCHLORITE (0.25%) 480ML SOLUTION (HALF STRENGTH) TOP SCH (12:16)
[2022-01-04] MEDS: ATORVASTATIN CALCIUM 10MG TABLET PO SCH (20:52)
[2022-01-04] MEDS: EPOETIN ALFA 10000UNITS/ML VIAL SUBCUT SCH (20:56)
[2022-01-04] MEDS: INSULIN GLARGINE UD 100 UNITS/ML SYR SUBCUT SCH (20:57)
[2022-01-04] MEDS ORDERED: VANCOMYCIN 500MG PREMIX 100 ML IV NR (22:00)
[2022-01-05] VITALS: BP 132/72
[2022-01-05 04:00] VITALS: BP 127/63
[2022-01-05] MEDS: BLOOD SUGAR DIAGNOSTIC STRIP TEST SCH ×4 (05:53→21:00)
[2022-01-05 07:30] VITALS: BP 90/52
[2022-01-05 07:32] LABS: BASOPHILS % 0.8 % (0.0-2.0); EOSINOPHILS % 2.2 % (0.0-5.0); HEMATOCRIT. 26.6 % (42.0-52.0); HEMOGLOBIN. 8.9 g/dL (14.0-18.0); LYMPHOCYTES % 13.2 % (20.0-50.0); MEAN CORPUSCULAR HEMOGLOBIN 26.1 pg (28.0-32.0); MEAN CORPUSCULAR VOLUME 78.4 fL (80.0-94.0); MEAN PLATELET VOLUME 7.8 fl (7.4-10.4); MONOCYTES % 7.5 % (2.0-8.0); NEUTROPHILS % 76.3 % (40.0-76.0); PLATELET 406 x1000/uL (130-400); RED BLOOD CELL COUNT 3.39 mill/uL (4.7-6.1); RED CELL DISTRIBUTION WIDTH 19.6 % (11.6-14.6)
[2022-01-05] MEDS: AMLODIPINE 5MG TABLET PO SCH (08:54)
[2022-01-05] MEDS: PANTOPRAZOLE SODIUM 40 MG/VIAL IV SCH ×2 (08:57→22:02)
[2022-01-05] MEDS: SODIUM HYPOCHLORITE (0.25%) 480ML SOLUTION (HALF STRENGTH) TOP SCH (08:57)
[2022-01-05] MEDS: PIPERACILLIN/TAZOBACTAM 3.375 G in DEXTROSE 5% WATER 50 ML IV SCH ×2 (08:58→22:03)
[2022-01-05] MEDS: INSULIN LISPRO 100 UNITS/ML SUBCUT SCH ×4 (09:04→22:05)
[2022-01-05] MEDS ORDERED: LIDOCAINE HCL/PF 1% 10 MG/ML 5ML VIAL ONE (09:11)
[2022-01-05 11:49] VITALS: BP 110/54
[2022-01-05] MEDS: DOCUSATE SODIUM SUGAR FREE 100MG/10ML UDC PO PRN ×2 (11:59→22:02)
[2022-01-05 15:34] VITALS: BP 109/62
[2022-01-05 20:00] VITALS: BP 116/76
[2022-01-05] MEDS: INSULIN GLARGINE UD 100 UNITS/ML SYR SUBCUT SCH (22:04)
[2022-01-05] MEDS: ATORVASTATIN CALCIUM 10MG TABLET PO SCH (22:06)
[2022-01-06] VITALS: BP 136/52
[2022-01-06 04:00] VITALS: BP 139/71
[2022-01-06 07:16] LABS: BASOPHILS % 0.6 % (0.0-2.0); EOSINOPHILS % 1.6 % (0.0-5.0); HEMATOCRIT. 27.6 % (42.0-52.0); HEMOGLOBIN. 9.1 g/dL (14.0-18.0); LYMPHOCYTES % 10.4 % (20.0-50.0); MEAN CORPUSCULAR VOLUME 79.2 fL (80.0-94.0); MEAN PLATELET VOLUME 7.7 fl (7.4-10.4); MONOCYTES % 7.1 % (2.0-8.0); NEUTROPHILS % 80.3 % (40.0-76.0); PLATELET 419 x1000/uL (130-400); RED BLOOD CELL COUNT 3.48 mill/uL (4.7-6.1); RED CELL DISTRIBUTION WIDTH 20.1 % (11.6-14.6)
[2022-01-06] MEDS: BLOOD SUGAR DIAGNOSTIC STRIP TEST SCH ×4 (07:20→21:00)
[2022-01-06 08:00] VITALS: BP 133/71
[2022-01-06] MEDS: PANTOPRAZOLE SODIUM 40 MG/VIAL IV SCH ×2 (09:27→22:14)
[2022-01-06] MEDS: AMLODIPINE 5MG TABLET PO SCH (09:28)
[2022-01-06] MEDS: PIPERACILLIN/TAZOBACTAM 3.375 G in DEXTROSE 5% WATER 50 ML IV SCH ×2 (09:28→22:14)
[2022-01-06] MEDS: INSULIN LISPRO 100 UNITS/ML SUBCUT SCH ×4 (09:30→22:17)
[2022-01-06] MEDS: SODIUM HYPOCHLORITE (0.25%) 480ML SOLUTION (HALF STRENGTH) TOP SCH (09:33)
[2022-01-06 11:30] VITALS: BP 131/73
[2022-01-06] MEDS ORDERED: BISACODYL 5MG TABLET PO NR (14:45)
[2022-01-06] MEDS ORDERED: BISACODYL 5MG TABLET PO PRN (14:45)
[2022-01-06 16:35] VITALS: BP 136/70
[2022-01-06 20:00] VITALS: BP 136/73
[2022-01-06] MEDS: ATORVASTATIN CALCIUM 10MG TABLET PO SCH (22:14)
[2022-01-06] MEDS: INSULIN GLARGINE UD 100 UNITS/ML SYR SUBCUT SCH (22:16)
[2022-01-07] VITALS: BP 140/74
[2022-01-07 04:00] VITALS: BP 122/65
[2022-01-07 06:54] LABS: BASOPHILS % 0.7 % (0.0-2.0); EOSINOPHILS % 2.6 % (0.0-5.0); HEMATOCRIT. 25.2 % (42.0-52.0); HEMOGLOBIN. 8.5 g/dL (14.0-18.0); LYMPHOCYTES % 13.6 % (20.0-50.0); MEAN CORPUSCULAR HEMOGLOBIN 26.8 pg (28.0-32.0); MEAN CORPUSCULAR VOLUME 79.1 fL (80.0-94.0); MEAN PLATELET VOLUME 7.4 fl (7.4-10.4); MONOCYTES % 8.6 % (2.0-8.0); NEUTROPHILS % 74.5 % (40.0-76.0); PLATELET 383 x1000/uL (130-400); RED BLOOD CELL COUNT 3.18 mill/uL (4.7-6.1); RED CELL DISTRIBUTION WIDTH 20.3 % (11.6-14.6)
[2022-01-07] MEDS: BLOOD SUGAR DIAGNOSTIC STRIP TEST SCH ×4 (07:35→21:29)
[2022-01-07] MEDS: INSULIN LISPRO 100 UNITS/ML SUBCUT SCH ×4 (07:35→21:27)
[2022-01-07 07:59] VITALS: BP 122/51
[2022-01-07] MEDS: PIPERACILLIN/TAZOBACTAM 3.375 G in DEXTROSE 5% WATER 50 ML IV SCH ×2 (08:26→22:45)
[2022-01-07] MEDS: SODIUM HYPOCHLORITE (0.25%) 480ML SOLUTION (HALF STRENGTH) TOP SCH (08:26)
[2022-01-07] MEDS: AMLODIPINE 5MG TABLET PO SCH (08:26)
[2022-01-07] MEDS: PANTOPRAZOLE SODIUM 40 MG/VIAL IV SCH ×2 (08:26→21:29)
[2022-01-07 12:12] VITALS: BP 140/63
[2022-01-07 15:46] VITALS: BP 110/50
[2022-01-07] MEDS: DOCUSATE SODIUM SUGAR FREE 100MG/10ML UDC PO SCH ×2 (16:02→16:03)
[2022-01-07 20:00] VITALS: BP 107/72
[2022-01-07] MEDS ORDERED: VANCOMYCIN 500MG PREMIX 100 ML IV SCH (21:00)
[2022-01-07] MEDS: ATORVASTATIN CALCIUM 10MG TABLET PO SCH (21:25)
[2022-01-07] MEDS: INSULIN GLARGINE UD 100 UNITS/ML SYR SUBCUT SCH (21:27)
[2022-01-07] MEDS: EPOETIN ALFA 10000UNITS/ML VIAL SUBCUT SCH (21:30)
[2022-01-08] VITALS: BP 117/60
[2022-01-08 04:00] VITALS: BP 116/54
[2022-01-08] MEDS: BLOOD SUGAR DIAGNOSTIC STRIP TEST SCH ×4 (07:20→21:40)
[2022-01-08] MEDS: INSULIN LISPRO 100 UNITS/ML SUBCUT SCH ×4 (07:50→22:25)
[2022-01-08 08:00] VITALS: BP 114/51
[2022-01-08 08:06] LABS: HEMATOCRIT. 25.4 % (42.0-52.0); HEMOGLOBIN. 8.3 g/dL (14.0-18.0); MEAN CORPUSCULAR VOLUME 79.1 fL (80.0-94.0); MEAN PLATELET VOLUME 7.7 fl (7.4-10.4); PLATELET 429 x1000/uL (130-400); RED BLOOD CELL COUNT 3.21 mill/uL (4.7-6.1); RED CELL DISTRIBUTION WIDTH 21.1 % (11.6-14.6)
[2022-01-08] MEDS: PANTOPRAZOLE SODIUM 40 MG/VIAL IV SCH ×2 (09:13→21:39)
[2022-01-08] MEDS: PIPERACILLIN/TAZOBACTAM 3.375 G in DEXTROSE 5% WATER 50 ML IV SCH ×2 (09:13→21:39)
[2022-01-08] MEDS: DOCUSATE SODIUM SUGAR FREE 100MG/10ML UDC PO SCH ×2 (09:13→16:39)
[2022-01-08] MEDS: SODIUM HYPOCHLORITE (0.25%) 480ML SOLUTION (HALF STRENGTH) TOP SCH (09:14)
[2022-01-08] MEDS: AMLODIPINE 5MG TABLET PO SCH (09:14)
[2022-01-08 12:00] VITALS: BP 123/72
[2022-01-08 16:00] VITALS: BP 115/44
[2022-01-08 17:34] LABS: PLATELET ESTIMATE INCREASED
[2022-01-08 18:25] LABS: HEMATOCRIT 25.3 % (42.0-52.0); HEMOGLOBIN 8.1 g/dL (14.0-18.0)
[2022-01-08 20:00] VITALS: BP 112/52
[2022-01-08] MEDS: ATORVASTATIN CALCIUM 10MG TABLET PO SCH (21:39)
[2022-01-08] MEDS: INSULIN GLARGINE UD 100 UNITS/ML SYR SUBCUT SCH (22:00)
[2022-01-09] VITALS: BP 116/61
[2022-01-09 04:00] VITALS: BP 119/72
[2022-01-09] MEDS: BLOOD SUGAR DIAGNOSTIC STRIP TEST SCH ×4 (06:49→21:47)
[2022-01-09 07:55] LABS: BASOPHILS % 0.9 % (0.0-2.0); EOSINOPHILS % 2.5 % (0.0-5.0); HEMATOCRIT. 25.6 % (42.0-52.0); HEMOGLOBIN. 8.5 g/dL (14.0-18.0); LYMPHOCYTES % 9.2 % (20.0-50.0); MEAN CORPUSCULAR HEMOGLOBIN 26.5 pg (28.0-32.0); MEAN CORPUSCULAR VOLUME 79.7 fL (80.0-94.0); MEAN PLATELET VOLUME 7.2 fl (7.4-10.4); MONOCYTES % 8.7 % (2.0-8.0); NEUTROPHILS % 78.7 % (40.0-76.0); PLATELET 380 x1000/uL (130-400); RED BLOOD CELL COUNT 3.22 mill/uL (4.7-6.1); RED CELL DISTRIBUTION WIDTH 21.6 % (11.6-14.6)
[2022-01-09 08:00] VITALS: BP 104/59
[2022-01-09] MEDS: AMLODIPINE 5MG TABLET PO SCH (08:55)
[2022-01-09] MEDS: PANTOPRAZOLE SODIUM 40 MG/VIAL IV SCH ×2 (08:55→21:51)
[2022-01-09] MEDS: PIPERACILLIN/TAZOBACTAM 3.375 G in DEXTROSE 5% WATER 50 ML IV SCH ×2 (08:55→21:51)
[2022-01-09] MEDS: DOCUSATE SODIUM SUGAR FREE 100MG/10ML UDC PO SCH ×2 (08:55→17:00)
[2022-01-09] MEDS: SODIUM HYPOCHLORITE (0.25%) 480ML SOLUTION (HALF STRENGTH) TOP SCH (08:56)
[2022-01-09] MEDS: INSULIN LISPRO 100 UNITS/ML SUBCUT SCH ×4 (09:08→21:53)
[2022-01-09 12:00] VITALS: BP 120/35
[2022-01-09 16:00] VITALS: BP 123/48
[2022-01-09 20:00] VITALS: BP 132/58
[2022-01-09] MEDS: ATORVASTATIN CALCIUM 10MG TABLET PO SCH ×2 (21:00→21:51)
[2022-01-09] MEDS: EPOETIN ALFA 10000UNITS/ML VIAL SUBCUT SCH (21:51)
[2022-01-09] MEDS: INSULIN GLARGINE UD 100 UNITS/ML SYR SUBCUT SCH ×2 (21:53→21:57)
[2022-01-10] VITALS: BP 124/67
[2022-01-10 04:00] VITALS: BP 118/58
[2022-01-10] MEDS: BLOOD SUGAR DIAGNOSTIC STRIP TEST SCH ×2 (06:41→12:56)
[2022-01-10] MEDS: INSULIN LISPRO 100 UNITS/ML SUBCUT SCH ×2 (07:28→14:29)
[2022-01-10 08:00] VITALS: BP 106/43
[2022-01-10] MEDS: AMLODIPINE 5MG TABLET PO SCH (09:00)
[2022-01-10] MEDS: DOCUSATE SODIUM SUGAR FREE 100MG/10ML UDC PO SCH (09:00)
[2022-01-10] MEDS: PANTOPRAZOLE SODIUM 40 MG/VIAL IV SCH (09:10)
[2022-01-10] MEDS: PIPERACILLIN/TAZOBACTAM 3.375 G in DEXTROSE 5% WATER 50 ML IV SCH (09:11)
[2022-01-10] MEDS: SODIUM HYPOCHLORITE (0.25%) 480ML SOLUTION (HALF STRENGTH) TOP SCH (09:13)
[2022-01-10 12:00] VITALS: BP 108/66
[2022-01-10] MEDS ORDERED: ATOR10TA PO (13:23)
[2022-01-10] MEDS ORDERED: LANTUSUD SUBCUT (13:23)
[2022-01-10] MEDS ORDERED: LEVO500T89 MT (14:13)
[2022-01-10] MEDS ORDERED: ATOR10TA MT (14:17)
[2022-01-10 16:54] VITALS: BP 106/60
== END 2022-01-10 19:30 | disposition home health service (06) | DRG 711 ==
LOC: ER 05:23 → MICUSO 06:03 → 6WST 23:41
PROVIDERS: ADMIT Internal Medicine; ATTEND Internal Medicine
PROC: 30233N1 Transfusion of Nonautologous Red Blood Cells into Peripheral Vein, Percutaneous Approach (ICD-10-PCS; 2021-12-30)
PROC: 0DB98ZX Excision of Duodenum, Via Natural or Artificial Opening Endoscopic, Diagnostic (ICD-10-PCS; principal; 2021-12-31)
PROC: 0DB78ZX Excision of Stomach, Pylorus, Via Natural or Artificial Opening Endoscopic, Diagnostic (ICD-10-PCS; 2021-12-31)
PROC: 5A1D70Z Performance of Urinary Filtration, Intermittent, Less than 6 Hours Per Day (ICD-10-PCS; 2021-12-31)
PROC: 5A1D70Z Performance of Urinary Filtration, Intermittent, Less than 6 Hours Per Day (ICD-10-PCS; 2022-01-02)
PROC: 0DJD8ZZ Inspection of Lower Intestinal Tract, Via Natural or Artificial Opening Endoscopic (ICD-10-PCS; 2022-01-03)
PROC: 5A1D70Z Performance of Urinary Filtration, Intermittent, Less than 6 Hours Per Day (ICD-10-PCS; 2022-01-04)
PROC: 02HV33Z Insertion of Infusion Device into Superior Vena Cava, Percutaneous Approach (ICD-10-PCS; 2022-01-05)
PROC: B518ZZA Fluoroscopy of Superior Vena Cava, Guidance (ICD-10-PCS; 2022-01-05)
PROC: B548ZZA Ultrasonography of Superior Vena Cava, Guidance (ICD-10-PCS; 2022-01-05)
PROC: 0QBN0ZZ Excision of Right Metatarsal, Open Approach (ICD-10-PCS; 2022-01-07)
PROC: 5A1D70Z Performance of Urinary Filtration, Intermittent, Less than 6 Hours Per Day (ICD-10-PCS; 2022-01-07)
PROC: 5A1D70Z Performance of Urinary Filtration, Intermittent, Less than 6 Hours Per Day (ICD-10-PCS; 2022-01-09)
DX: T80.211A Bloodstream infection due to central venous catheter, initial encounter (principal); A41.9 Sepsis, unspecified organism; I13.2 Hypertensive heart and chronic kidney disease with heart failure and with stage 5 chronic kidney disease, or end stage renal disease; I27.20 Pulmonary hypertension, unspecified; J18.9 Pneumonia, unspecified organism; K29.51 Unspecified chronic gastritis with bleeding; N18.6 End stage renal disease; E11.22 Type 2 diabetes mellitus with diabetic chronic kidney disease; L97.519 Non-pressure chronic ulcer of other part of right foot with unspecified severity; D50.9 Iron deficiency anemia, unspecified; E11.621 Type 2 diabetes mellitus with foot ulcer; E11.65 Type 2 diabetes mellitus with hyperglycemia; I50.22 Chronic systolic (congestive) heart failure; N28.1 Cyst of kidney, acquired; K80.20 Calculus of gallbladder without cholecystitis without obstruction; I34.0 Nonrheumatic mitral (valve) insufficiency; K21.9 Gastro-esophageal reflux disease without esophagitis; E11.51 Type 2 diabetes mellitus with diabetic peripheral angiopathy without gangrene; K64.8 Other hemorrhoids; F17.210 Nicotine dependence, cigarettes, uncomplicated; I35.1 Nonrheumatic aortic (valve) insufficiency; Z20.822 Contact with and (suspected) exposure to COVID-19; Y83.8 Other surgical procedures as the cause of abnormal reaction of the patient, or of later complication, without mention of misadventure at the time of the procedure; I44.0 Atrioventricular block, first degree; J44.9 Chronic obstructive pulmonary disease, unspecified; K29.81 Duodenitis with bleeding; Z99.2 Dependence on renal dialysis; Z79.4 Long term (current) use of insulin; Z91.19 Patient's noncompliance with other medical treatment and regimen; Z79.899 Other long term (current) drug therapy; Z86.73 Personal history of transient ischemic attack (TIA), and cerebral infarction without residual deficits; Y92.89 Other specified places as the place of occurrence of the external cause; R16.1 Splenomegaly, not elsewhere classified; Z89.421 Acquired absence of other right toe(s)
CPT/HCPCS: 36415; 71045; 73721; 74176; 76700; 76937; 80048; 80053; 80061; 80202; 82607; 82728; 82746; 82962; 83036; 83540; 83550; 83605; 83735; 84100; 84145; 84443; 84484; 85014; 85018; 85025; 85044; 85651; 86141; 86705; 86709; 86803; 86850; 86900; 86920; 87070; 87075; 87077; 87186; 87340; 87426; 88304; 88305; 88311; 88312; 88313; 93005; 93306; 93923; 93970; 97161; 99291; A6261; C1725; C1892; C1893; C9113; J0885; J1815; J2250; J2405; J2543; J2704; J2765; J3010; J3370; J3490; J7040; J7060; P9016; P9021; Q9967

== ENCOUNTER 2022-03-16 00:58 | Inpatient (IN) | payer OTHER ==
[~2022-03-16] VITALS: Ht 177.8 cm; Wt 68.0 kg
[~2022-03-16 00:58] MED LIST changes: +ATOR10TA MT; +LEVO500T89 MT
[2022-03-16] MEDS ORDERED: ACETAMINOPHEN 325MG TABLET PO STA (04:39)
[2022-03-16] MEDS ORDERED: VANCOMYCIN 1G PREMIX 200 ML IV ONE (04:45)
[2022-03-16] MEDS ORDERED: PIPERACILLIN/TAZ 3.375G PREMIX 50 ML IV ONE (04:45)
[2022-03-16 05:16] LABS: BASOPHILS % 0.4 % (0.0-2.0); EOSINOPHILS % 1.6 % (0.0-5.0); HEMATOCRIT. 24.6 % (42.0-52.0); HEMOGLOBIN. 7.6 g/dL (14.0-18.0); LYMPHOCYTES % 7.8 % (20.0-50.0); MEAN CORPUSCULAR HEMOGLOBIN 23.7 pg (28.0-32.0); MEAN CORPUSCULAR VOLUME 77.2 fL (80.0-94.0); MEAN PLATELET VOLUME 7.8 fl (7.4-10.4); MONOCYTES % 5.5 % (2.0-8.0); NEUTROPHILS % 84.7 % (40.0-76.0); PLATELET 459 x1000/uL (130-400); RED BLOOD CELL COUNT 3.19 mill/uL (4.7-6.1); RED CELL DISTRIBUTION WIDTH 22.6 % (11.6-14.6)
[2022-03-16 05:24] LABS: CHLORIDE 98 mEq/L (98-107)
[2022-03-16 07:23] LABS: PLATELET ESTIMATE INCREASED
[2022-03-16] MEDS ORDERED: IPRATROPIUM/ALBUTEROL 0.5-3(2.5)MG/3ML NEB HHN PRN (16:30)
[2022-03-16] MEDS ORDERED: DOCUSATE SODIUM 100MG CAPSULE PO PRN (16:30)
[2022-03-16] MEDS ORDERED: LORAZEPAM 0.5MG TABLET PO PRN (16:30)
[2022-03-16] MEDS ORDERED: HYDROCODONE/ACETAMINOPHEN 5/325MG TABLET PO PRN (16:30)
[2022-03-16] MEDS ORDERED: NALOXONE HCL 0.4MG/ML VIAL IV PRN (16:30)
[2022-03-16] MEDS ORDERED: ACETAMINOPHEN 325MG TABLET PO PRN ×2 (16:30)
[2022-03-16] MEDS ORDERED: ONDANSETRON HCL 4MG/2ML INJ IV PRN (16:30)
[2022-03-16] MEDS ORDERED: CLONIDINE 0.1MG TABLET PO PRN (16:30)
[2022-03-16] MEDS ORDERED: PIPERACILLIN/TAZ 3.375G PREMIX 50 ML IV NR (16:45)
[2022-03-16] MEDS: PIPERACILLIN/TAZ 3.375G PREMIX 50 ML IV SCH (17:15)
[2022-03-16] MEDS ORDERED: PIPERACILLIN/TAZOBACTAM 3.375 G in DEXTROSE 5% WATER 50 ML IV SCH (22:00)
[2022-03-17] MEDS: PIPERACILLIN/TAZ 3.375G PREMIX 50 ML IV SCH (05:19)
[2022-03-17 06:01] LABS: BASOPHILS % 0.5 % (0.0-2.0); EOSINOPHILS % 2.4 % (0.0-5.0); LYMPHOCYTES % 7.3 % (20.0-50.0); MEAN CORPUSCULAR HEMOGLOBIN 24.6 pg (28.0-32.0); MEAN CORPUSCULAR VOLUME 76.6 fL (80.0-94.0); MEAN PLATELET VOLUME 8.3 fl (7.4-10.4); MONOCYTES % 6.1 % (2.0-8.0); NEUTROPHILS % 83.7 % (40.0-76.0); PLATELET 373 x1000/uL (130-400); RED BLOOD CELL COUNT 2.75 mill/uL (4.7-6.1); RED CELL DISTRIBUTION WIDTH 22.9 % (11.6-14.6)
[2022-03-17 06:13] LABS: HEMOGLOBIN. 6.7 g/dL (14.0-18.0)
[2022-03-17 08:00] VITALS: BP 112/66
[2022-03-17] MEDS ORDERED: VANCOMYCIN 750MG PREMIX 150 ML IV SCH (16:00)
[2022-03-17] MEDS ORDERED: EPOETIN ALFA-EPBX 10,000 UNIT/ML VIAL SUBCUT SCH (21:00)
[2022-03-17] MEDS ORDERED: PIPERACILLIN/TAZ 3.375G PREMIX 50 ML IV SCH (21:00)
== END 2022-03-17 11:16 | disposition left against medical advice (07) | DRG 721 ==
LOC: ER 00:58 → MICUSO 08:28
PROVIDERS: ADMIT Internal Medicine; ATTEND Internal Medicine
PROC: 5A1D70Z Performance of Urinary Filtration, Intermittent, Less than 6 Hours Per Day (ICD-10-PCS; principal; 2022-03-17)
DX: T80.211A Bloodstream infection due to central venous catheter, initial encounter (principal); U07.1 COVID-19; A41.9 Sepsis, unspecified organism; I13.2 Hypertensive heart and chronic kidney disease with heart failure and with stage 5 chronic kidney disease, or end stage renal disease; N18.6 End stage renal disease; J18.9 Pneumonia, unspecified organism; L97.419 Non-pressure chronic ulcer of right heel and midfoot with unspecified severity; E11.22 Type 2 diabetes mellitus with diabetic chronic kidney disease; E11.51 Type 2 diabetes mellitus with diabetic peripheral angiopathy without gangrene; D64.9 Anemia, unspecified; M86.8X7 Other osteomyelitis, ankle and foot; E11.621 Type 2 diabetes mellitus with foot ulcer; Z53.29 Procedure and treatment not carried out because of patient's decision for other reasons; E11.65 Type 2 diabetes mellitus with hyperglycemia; E11.69 Type 2 diabetes mellitus with other specified complication; L97.519 Non-pressure chronic ulcer of other part of right foot with unspecified severity; I50.22 Chronic systolic (congestive) heart failure; K80.20 Calculus of gallbladder without cholecystitis without obstruction; E78.5 Hyperlipidemia, unspecified; K29.70 Gastritis, unspecified, without bleeding; Y84.8 Other medical procedures as the cause of abnormal reaction of the patient, or of later complication, without mention of misadventure at the time of the procedure; R16.1 Splenomegaly, not elsewhere classified; N28.1 Cyst of kidney, acquired; Z99.2 Dependence on renal dialysis; Z79.4 Long term (current) use of insulin; Z86.73 Personal history of transient ischemic attack (TIA), and cerebral infarction without residual deficits; Z91.19 Patient's noncompliance with other medical treatment and regimen; Y92.89 Other specified places as the place of occurrence of the external cause; Z79.899 Other long term (current) drug therapy; Z89.421 Acquired absence of other right toe(s)
CPT/HCPCS: 36415; 71045; 73630; 80048; 80053; 80202; 82962; 83605; 84145; 84484; 85025; 86140; 87426; 93005; 99285; C9803; J2543; J3370